=== PATIENT | female | born 1930 | race Caucasian/White ===

== ENCOUNTER 2018-04-16 13:41 | Emergency (ER) | payer MEDICARE ==
--- OUTSIDE RECORDS SUMMARY | 2018-04-16 14:08 | XMS REPORT | Continuity of Care Document ---
:1930 External Reference #:[id number] Author Name Sergo Garcia M.D. Address [address] [place] [address] Care Team Providers Name Role Phone Itzel Dang M.D. Primary Care Physician Unavailable Payers Type Date Identification Numbers Payment Provider Subscriber Policy Number: [id number] [facility] Lisa Oreilly PayID: [id number] [id number] [place] [id number] Advance Directives Description No Information Available Problems Date Description Provider Status Onset: Arthritis Active Onset: Meniere's disease Active Onset: 09/13/2016 Nuclear senile cataract Sergo Garcia M.D. Active Onset: 09/13/2016 Ocular hypertension Sergo Garcia M.D. Active Onset: 09/13/2016 Vitreous degeneration Sergo Garcia M.D. Active Onset: 09/13/2016 Hypermetropia Sergo Garcia M.D. Active Onset: 09/13/2016 Presbyopia Sergo Garcia M.D. Active Onset: 09/19/2017 Corneal opacity Sergo Garcia M.D. 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 Family History Date Family Member(s) Problem(s) Comments Father No Current Problems Mother No Current Problems Social History Type Date Description Comments Sex Unknown Marital Status Single Occupation [employer] Work Status Retired ETOH Use Denies alcohol use Tobacco Use Start: Unknown Patient has never smoked Recreational Drug Use Denies Drug Use Smoking Status Reviewed: 01/17/19 Patient has never smoked Allergies, Adverse Reactions, Alerts Date Description Reaction Status Severity Comments 09/11/2016 Penicillin Active Medications Medication Date Status Form Strength Qnty SIG Indications Ordering Provider Meclizine HCL Active Tablets 25mg Unknown 00 Multi Vitamin Active Tablets Unknown Daily 00 Vitamin D Active Tablets 1000Unit 4 every Unknown 00 day Calcium 600 Active Tablets 600mg Unknown 00 Magnesium Active Capsules 300mg Unknown 00 Potassium Active Tablets 75mg Unknown 00 Fish Oil Active Capsules 1000mg 1 by Unknown 00 mouth every day Immunizations Description No Information Available Vital Signs Description No Information Available Results Description No Information Available Procedures Date Code Description Status 09/19/2017 62099 Est Patient Comprehensive Exam Completed 09/13/2016 52944 Determination Of Refractive State Completed 09/13/2016 72151 New Patient Comprehensive Exam Completed 06/29/2008 66952 Fundus Photography With Interpretation And Report Completed 06/29/2008 28341 Est Patient Intermediate Exam Completed 06/29/2008 75931 Pachymetry Completed 12/30/2007 35441 Determination Of Refractive State Completed 12/30/2007 03357 Est Patient Comprehensive Exam Completed 01/11/2004 08578 Determination Of Refractive State Completed 01/11/2004 13348 Est Patient Comprehensive Exam Completed Encounters Description No Information Available Plan of Treatment 04/03/2018 - Sergo Garcia M.D.H25.13 Age-related nuclear cataract, bilateralComments:Smoking can increase the risk of developing or worsening any eye related disease, as well as affect your overall health. If you are a smoker , we strongly recommend that you quit.If you are not a smoker, we strongly recommend that you do not start. You have been diagnosed with cataracts. If you are happy with your vision as it is now, then we will see you at your next scheduled appointment. If you feel like your vision is getting worse before your scheduled appointment, please call Hanna Baez at .Follow up:1 Year Follow Up DFE You can expect to have your eyes dilated at your next visit. If Dr. Garcia orders any additional testing, it may require extra time. We recommend that you bring sunglasses, as dilation drops often make you light sensitive until they wear off. We always recommend you bring someone to drive you home if you are uncomfortable driving with your eyes dilated. If you have any questions before your next visit, feel free to call our office at .h43.813 Vitreous degeneration, bilateralComments: You have a Posterior Vitreous Detachment. If you have any changes in your floaters or flashing lights, please contact this office.D48.5 Neoplasm of uncertain behavior of skinComments:IF THE SPOT ON THE LEFT LOWER EYELID RETURNS THEN CALL THE OFFICE.
--- OUTSIDE RECORDS SUMMARY | 2018-04-16 14:09 | XMS REPORT ---
:1930 External Reference #:[id number] Author Organization [facility] Address [address] [place] [address] Phone [phone] Care Team Providers Name Role Phone Itzel Dang Care Team Information Radiology Scheduler Unavailable Itzel Dang Primary Care Physician Unavailable Payers Type Date Identification Numbers Payment Provider Subscriber Commercial Effective: Policy Number: Medicare Blue Ppo Lisa Oreilly 2006 [id number] Group Number: [id number] [address] [address] Group Name: [place] [address] PayID: [id number] Problems Date Description Provider Status Onset: 06/18/2011 Disorder of shoulder Darlene Cruz M.D. Active Onset: 06/18/2011 Essential tremor Darlene Cruz M.D. Active Onset: 03/26/2017 Meniere's disease, bilateral Itzel Dang M.D. Active Onset: 05/21/2014 Osteoporosis Itzel Dang M.D. Active Onset: 05/21/2014 Post-herpetic polyneuropathy Itzel Dang M.D. 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 Father 64 dt ID. Mother 87 dt CVA Number of Children None Number of Siblings 7 siblings: 6 girls, 2 boys First Brother age 90 in 2013. First Sister [place], early dementia. LIves in [facility]. Second Sister 93. Nataly. ?Caught something while visiting her daughter in [place]. Social History Type Date Description Comments Marital Status Patient is single. Partner of 51 years in 2005 from lymphoma. Living Situation Patient lives alone. 91 yr old sister, Nataly, lives in [facility]. Other sister, Serenity Pagan, has Alzheimers and lives in [facility]. Occupation Retired Bookkeeping at [employer] Cigarette Use Never Smoked Cigarettes ETOH Use Denies alcohol use Smoking Patient has never smoked Daily Caffeine Consumes on average 1 cup of coffee per day Exercise Type/Frequency Exercises sporadically, has a Current home stretching program, carlos mcmanuswes the lawn now (2016), does a lot of yardwork. [email or web address] still does shovelling, housework. Allergies, Adverse Reactions, Alerts Date Description Reaction Status Severity Comments 10/20/1998 Penicillin active Hives Medications Medication Date Status Form Strength Qnty SIG Indications Ordering Provider New Chapter 03/20 Active Itzel Adler Calcium /2018 Breann Dang Meclizine HCL 02/20 Active Tablets 25mg 30tab 1/2 pill by Itzel Adler s mouth up to [place], three times a M.D. day as needed. MSM 09/01 Active Itzel Adler /2013 Breann Dang One A Day 09/01 Active Itzel Adler Multivitamin /2013 Breann Dang Potassium/Magn 09/01 Active Itzel Adler esium /2013 Breann Dang Fish Oil Active Capsules 1000mg 2 by mouth bid Unknown /0000 New Chapter 11/05 Hx Itzel Adler Vitamin D /2017 Marisa Dang.DGael 03/20 Physical 07/03 Hx evaluate and M81.0 Itzel Adler Therapy /2017 treat fall [place], - prevention and M.DGael 10/29 osteoporosis /2017 Physical 07/11 Hx evaluate and M25.551 Itzel Adler Therapy /2016 treat right [place], - hip pain. M.D. 03/26 Meclizine 02/20 Hx 25mg 30uni 1/2 tab po tid Itzel Adler /2015 ts Marisa DangDGael 02/20 Meloxicam 10/04 Hx Tablets 7.5mg 60tab 1 by mouth 729.5 Nora s twice a day Brown, [employer]IV[employer]IAN J[employer] OFFICER - 02/06 Vit D3 09/01 Hx 1000iu po Itzel L. /2013 daily [place], - M.D. 11/05 Alendronate 09/01 Hx Tablets 70mg 4tabs take 1 tablet 733.00 Itzel L. Sodium /2013 every week on [place], - an empty M.D. 11/13 stomach. Stand up for one-half hour after taking it. Betamethasone 07/23 Hx Cream 0.1% 30uni apply to 782.1 Trisha Valerate ts affected Pop, - area(s) two Afnp-C 02/06 times a day /2015 No Active 12/02 Hx Unknown Medications /2012 - 12/02 Gabapentin 02/17 Hx Capsules 100mg 35cap take 2 Sandy s capsules qd Marisa, - for 2 weeks LENDING MANAGER 05/27 then 1 po qd for 1 week Gabapentin 01/06 Hx Capsules 300mg 90cap take one Sandy s capsule by Marisa, - mouth three LENDING MANAGER 02/17 times a day /2011 Gabapentin 12/24 Hx Capsules 100mg 90cap take 1 Sandy s capsules every Marisa, - 8 hours LENDING MANAGER 01/06 Valtrex 12/17 Hx Tablets 1gm 21tab 1 po tid x 7 053.79 Trisha s days may fill Pop, - w/ generic Afnp-C 02/10 PT Referral 06/17 Hx please Darlene Sorenson /2011 evaluate and Anthony, - treat for l M.D. 08/22 upper arm /2011 muscular pain Relafen 08/07 Hx 500mg 30uni 1 po bid with 729.5 Kadi ts food Amber, - Afnp-C 09/04 Magic 06/14 Hx 500ml 30 ml Kellie Mouthwash /2005 diphenhydramin von - e liquid, 60 [place], 10/01 ml mylanta and M.D. /2005 4 g carafate sig: Swish And Spit bid Fosamax 07/27 Hx Tablets 70mg 4tabs 1 po qweek on Kellie /2005 empty stomach michael Boyle, 06/14 M.D. /2005 Meclizine 05/24 Hx 25mg 15uni 1/2 tab by Itzel Adler /2004 ts mouth three [place], - times a day M.D. 02/20 Aricept 05/24 Hx 10mg 30uni 1 po qhs Kellie /2005 ts michael Boyle, 06/14 M.D. /2005 Quinine 05/07 Hx Tabs 200mg 30tab 1 po qhs prn Tunde S. Sulfate s Marisa Mendoza M.D. 06/14 Physical 05/07 Hx Treatment And Tunde S. Therapy Evaluation Marisa Mendoza M.D. 07/06 Shoulder And /2000 Arm Pain Meclizine 02/19 Hx 12.5mg 30uni 1-2 po tid prn Kadi richard Clark, - Afnp-C 05/27 Vital Signs Date Vital Result Comment 03/20/2018 BP Systolic 120 mmHg BP Diastolic 52 mmHg Heart Rate 96 /min Body Temperature 97.6 F Respiratory Rate 17 /min Height 55.5 inches 4'7.50" Weight 90.38 lb BMI (Body Mass Index) 20.6 kg/m2 11/05/2017 BP Systolic 140 mmHg BP Diastolic 60 mmHg Heart Rate 78 /min Body Temperature 97.5 F Respiratory Rate 16 /min Height 55.5 inches 4'7.50" Weight 90.50 lb BMI (Body Mass Index) 20.7 kg/m2 08/20/2017 BP Systolic 118 mmHg BP Diastolic 60 mmHg Heart Rate 84 /min Body Temperature 97.7 F Respiratory Rate 16 /min Height 55.5 inches 4'7.50" Weight 92.12 lb BMI (Body Mass Index) 21.0 kg/m2 07/03/2017 BP Systolic 132 mmHg BP Diastolic 62 mmHg Heart Rate 72 /min Body Temperature 97.7 F Height 55.5 inches 4'7.50" Weight 92.50 lb BMI (Body Mass Index) 21.1 kg/m2 03/26/2017 BP Systolic 110 mmHg BP Diastolic 60 mmHg Heart Rate 88 /min Body Temperature 97.9 F Respiratory Rate 18 /min Height 55.5 inches 4'7.50" Weight 88.50 lb BMI (Body Mass Index) 20.2 kg/m2 07/11/2016 BP Systolic 120 mmHg BP Diastolic 70 mmHg Heart Rate 72 /min Body Temperature 98.2 F Respiratory Rate 16 /min Height 55.5 inches 4'7.50" Weight 91.44 lb BMI (Body Mass Index) 20.9 kg/m2 02/08/2016 BP Systolic 124 mmHg BP Diastolic 62 mmHg Heart Rate 78 /min Body Temperature 97.9 F Height 55.5 inches 4'7.50" Weight 89.00 lb BMI (Body Mass Index) 20.3 kg/m2 10/04/2014 BP Systolic 100 mmHg BP Diastolic 70 mmHg Heart Rate 72 /min Body Temperature 98.2 F Respiratory Rate 18 /min Height 55.5 inches 4'7.50" Weight 89.00 lb BMI (Body Mass Index) 20.3 kg/m2 05/21/2014 BP Systolic 122 mmHg BP Diastolic 82 mmHg Heart Rate 80 /min Body Temperature 97.7 F O2 % BldC Oximetry 55.5 % Height 55.5 inches 4'7.50" Weight 89.00 lb BMI (Body Mass Index) 20.3 kg/m2 11/13/2013 BP Systolic 90 mmHg BP Diastolic 60 mmHg Heart Rate 84 /min Body Temperature 97.4 F Respiratory Rate 16 /min Height 55.5 inches 4'7.50" Weight 86.00 lb BMI (Body Mass Index) 19.6 kg/m2 09/01/2013 BP Systolic 90 mmHg BP Diastolic 60 mmHg Heart Rate 90 /min Body Temperature 97.2 F Respiratory Rate 16 /min Height 55.5 inches 4'7.50" Weight 85.25 lb BMI (Body Mass Index) 19.5 kg/m2 Right Visual Acuity Distance 20/50 corrected Left Visual Acuity Distance 20/40 corrected 07/23/2013 BP Systolic 128 mmHg BP Diastolic 60 mmHg Heart Rate 74 /min Body Temperature 98.3 F Height 55.5 inches 4'7.50" Weight 88.00 lb BMI (Body Mass Index) 20.1 kg/m2 12/02/2012 BP Systolic 138 mmHg BP Diastolic 88 mmHg Heart Rate 88 /min Body Temperature 97.9 F Respiratory Rate 16 /min Height 55.5 inches 4'7.50" Weight 88.38 lb BMI (Body Mass Index) 20.2 kg/m2 05/27/2012 BP Systolic 120 mmHg BP Diastolic 70 mmHg Heart Rate 80 /min Body Temperature 98.0 F Respiratory Rate 16 /min Height 55.5 inches 4'7.50" Weight 90.00 lb BMI (Body Mass Index) 20.5 kg/m2 02/11/2012 BP Systolic 112 mmHg BP Diastolic 72 mmHg Heart Rate 88 /min Body Temperature 97.6 F Height 56 inches 4'8" Weight 92.00 lb BMI (Body Mass Index) 20.6 kg/m2 12/18/2011 BP Systolic 130 mmHg BP Diastolic 70 mmHg Heart Rate 80 /min Body Temperature 96.9 F Height 56 inches 4'8" Weight 91.00 lb BMI (Body Mass Index) 20.4 kg/m2 08/23/2011 BP Systolic 94 mmHg BP Diastolic 56 mmHg Heart Rate 78 /min Body Temperature 98.6 F Height 56 inches 4'8" Weight 88.50 lb BMI (Body Mass Index) 19.8 kg/m2 06/18/2011 BP Systolic 110 mmHg BP Diastolic 68 mmHg Heart Rate 96 /min Body Temperature 98.4 F Height 56 inches 4'8" Weight 87.50 lb BMI (Body Mass Index) 19.6 kg/m2 09/04/2010 BP Systolic 110 mmHg BP Diastolic 62 mmHg Heart Rate 74 /min Body Temperature 96.8 F Height 56 inches 4'8" Weight 92.00 lb BMI (Body Mass Index) 20.6 kg/m2 08/07/2010 BP Systolic 100 mmHg BP Diastolic 60 mmHg Heart Rate 68 /min Respiratory Rate 15 /min Height 56 inches 4'8" Weight 93.00 lb BMI (Body Mass Index) 20.8 kg/m2 04/18/2009 BP Systolic 124 mmHg BP Diastolic 70 mmHg Heart Rate 102 /min Body Temperature 98.8 F Height 56 inches 4'8" Weight 93.00 lb BMI (Body Mass Index) 20.8 kg/m2 10/17/2006 BP Systolic 150 mmHg BP Diastolic 90 mmHg Heart Rate 78 /min Height 56.5 inches 4'8.50" Weight 98.00 lb BMI (Body Mass Index) 21.6 kg/m2 08/02/2006 BP Systolic 112 mmHg BP Diastolic 70 mmHg Heart Rate 68 /min Body Temperature 98.3 F Height 56.5 inches 4'8.50" Weight 99.00 lb BMI (Body Mass Index) 21.8 kg/m2 10/01/2005 BP Systolic 104 mmHg BP Diastolic 70 mmHg Heart Rate 68 /min Height 56.5 inches 4'8.50" Weight 122.00 lb BMI (Body Mass Index) 26.9 kg/m2 06/14/2005 BP Systolic 126 mmHg BP Diastolic 80 mmHg Heart Rate 78 /min Body Temperature 98.9 F Height 56.5 inches 4'8.50" Weight 124.00 lb BMI (Body Mass Index) 27.3 kg/m2 10/05/2004 BP Systolic 122 mmHg BP Diastolic 62 mmHg Heart Rate 80 /min Body Temperature 99.5 F Height 56.5 inches 4'8.50" Weight 125.00 lb BMI (Body Mass Index) 27.5 kg/m2 05/24/2004 BP Systolic 118 mmHg BP Diastolic 60 mmHg Heart Rate 128 /min Height 56.5 inches 4'8.50" Weight 129.00 lb BMI (Body Mass Index) 28.4 kg/m2 10/30/2002 BP Systolic 108 mmHg BP Diastolic 70 mmHg Heart Rate 88 /min Height 58.5 inches 4'10.50" Weight 126.00 lb BMI (Body Mass Index) 25.9 kg/m2 08/07/2001 BP Systolic 120 mmHg BP Diastolic 78 mmHg Heart Rate 80 /min Height 58.5 inches 4'10.50" Weight 129.00 lb BMI (Body Mass Index) 27.0 kg/m2 05/07/2000 BP Systolic 130 mmHg BP Diastolic 80 mmHg Heart Rate 90 /min Body Temperature 97.5 F Height 56.75 inches 4'8.75" Weight 126.00 lb BMI (Body Mass Index) 28.2 kg/m2 10/20/1998 BP Systolic 140 mmHg LA SM Cuff BP Diastolic 72 mmHg LA SM Cuff Heart Rate 72 /min Reg Body Temperature 97.8 F Height 56.75 inches 4'8.75" Weight 121.00 lb 11/17/1996 BP Systolic 110 mmHg BP Diastolic 72 mmHg Weight 126.00 lb Results Test Date Test Result H/L Range Note Lipid Profile 03/26/2017 Cholesterol 230 mg/dL High 120-200 Triglycerides 76 mg/dL 30-200 HDL Cholesterol 89 mg/dL High 30-85 1 LDL (Calculated) 126 CALC 0-129 VLDL Cholesterol 15 mg/dL 0-50 HDL Risk Factor 2.6 CALC 0.0-4.4 Laboratory test finding 03/26/2017 TSH 1.95 mIU/L 0.50-6.00 Magnesium, Serum 2.0 mEq/L 1.2-2.1 Comprehensive Metabolic Prof 03/26/2017 Sodium 147 mEq/L 134-149 Potassium 4.5 mEq/L 3.6-5.5 Chloride 111 mEq/L 94-112 Carbon Dioxide 24 mEq/L 21-32 Glucose 81 mg/dL 70-105 BUN 19 mg/dL 6-26 Creatinine 0.7 mg/dL 0.6-1.4 BUN/Creat Ratio 27.1 CALC 8.0-36.0 Calcium 10.2 mg/dL 8.6-10.2 Total Protein 7.4 g/dL 6.4-8.3 Albumin 4.3 g/dL 3.8-5.5 Globulin 3.1 g/dL 2.0-4.8 A/G Ratio 1.4 CALC 0.6-2.3 Alk. Phosphatase 77 U/L 30-110 Alt (SGPT) 36 U/L High 7-35 Ast (Sgot) 42 U/L High 5-34 Total Bilirubin 0.6 mg/dL 0.2-1.3 GFR Non- >60 ml/min/1.73m^ >=60 GFR >60 ml/min/1.73m^ >=60 CBC Electronic (a) 03/26/2017 WBC 5.7 3.6-9.6 RBC 4.40 3.90-5.70 Hemoglobin (Fma/CMC/CTX) 13.7 g/dL 12.1 - 17.2 Hematocrit (Fma/CMC/CTX) 41.7 % 36.1 - 50.3 Platelets 202 10^3/ul 150-400 Lymph% 29.8 % 17.0-48.0 Mixed% 5.7 Neutrophils % 64.5 Mean Corpuscular Vol 95 82.2-97.4 Mean Corpuscular Hemoglobin 31.2 27.6-33.3 Mean Corpuscular Hemo Concen 32.9 32.0-36.0 RDW 14.5 High 11.6-13.7 Mean Platelet Volume 7.7 5.5-11.0 Laboratory test finding 02/08/2016 TSH 1.70 mIU/L 0.50-6.00 Free T4 1.14 ng/dL 0.75-1.54 CBC Electronic (a) 02/08/2016 WBC 5.9 3.6-9.6 RBC 4.18 3.90-5.70 Hemoglobin (Fma/CMC/CTX) 13.0 g/dL 12.1 - 17.2 Hematocrit (Fma/CMC/CTX) 40.0 % 36.1 - 50.3 Platelets 215 10^3/ul 150-400 Lymph% 27.1 % 17.0-48.0 Mixed% 5.5 Neutrophils % 67.4 Mean Corpuscular Vol 96 82.2-97.4 Mean Corpuscular Hemoglobin 31.2 27.6-33.3 Mean Corpuscular Hemo Concen 32.6 32.0-36.0 RDW 14.0 High 11.6-13.7 Mean Platelet Volume 7.2 5.5-11.0 Lipid Profile 02/08/2016 Cholesterol 254 mg/dL High 120-200 Triglycerides 62 mg/dL 30-200 HDL Cholesterol 101 mg/dL High 30-85 2 LDL (Calculated) 141 CALC High 0-129 VLDL Cholesterol 12 mg/dL 0-50 HDL Risk Factor 2.5 CALC 0.0-4.4 Comprehensive Metabolic Prof 02/08/2016 Sodium 142 mEq/L 134-149 Potassium 4.6 mEq/L 3.6-5.5 Chloride 100 mEq/L 94-112 Carbon Dioxide 26 mEq/L 21-32 Glucose 104 mg/dL 70-105 BUN 13 mg/dL 6-26 Creatinine 0.6 mg/dL 0.6-1.4 BUN/Creat Ratio 21.7 CALC 8.0-36.0 Calcium 10.0 mg/dL 8.6-10.2 Total Protein 7.4 g/dL 6.4-8.3 Albumin 4.2 g/dL 3.8-5.5 Globulin 3.2 g/dL 2.0-4.8 A/G Ratio 1.3 CALC 0.6-2.3 Alk. Phosphatase 78 U/L 30-110 Alt (SGPT) 26 U/L 7-35 Ast (Sgot) 39 U/L High 5-34 3 Total Bilirubin 0.5 mg/dL 0.2-1.3 GFR Non- >60 ml/min/1.73m^ >=60 GFR >60 ml/min/1.73m^ >=60 Laboratory test finding 02/08/2016 Vitamin B-12 1146 pg/mL High 230-1050 4 Folate Level >20.00 ng/mL High 3.00-16.00 CBC Electronic (a) 05/21/2014 WBC 5.7 3.6-9.6 RBC 4.22 3.90-5.70 Hemoglobin (Fma/CMC/CTX) 13.2 g/dL 12.1 - 17.2 Hematocrit (Fma/CMC/CTX) 39.6 % 36.1 - 50.3 Platelets 214 10^3/ul 150-400 Lymph% 29.0 % 17.0-48.0 Mixed% 6.7 Neutrophils % 64.3 Mean Corpuscular Vol 94 82.2-97.4 Mean Corpuscular Hemoglobin 31.4 27.6-33.3 Mean Corpuscular Hemo Concen 33.5 32.0-36.0 RDW 14.5 High 11.6-13.7 Mean Platelet Volume 7.0 5.5-11.0 Laboratory test finding 05/21/2014 Vitamin D25 79 30-100 5 Laboratory test finding 05/21/2014 TSH 2.75 mIU/L 0.50-6.00 Comprehensive Metabolic Prof 05/21/2014 Sodium 143 mEq/L 134-149 Potassium 4.5 mEq/L 3.6-5.5 Chloride 105 mEq/L 94-112 Carbon Dioxide 25 mEq/L 21-32 Glucose 105 mg/dL 70-105 BUN 17 mg/dL 6-26 Creatinine 0.6 mg/dL 0.6-1.4 BUN/Creat Ratio 28.3 CALC 8.0-36.0 Calcium 9.7 mg/dL 8.6-10.2 Total Protein 7.5 g/dL 6.4-8.3 Albumin 4.4 g/dL 3.8-5.5 Globulin 3.1 g/dL 2.0-4.8 A/G Ratio 1.4 CALC 0.6-2.3 Alk. Phosphatase 70 U/L 30-110 Alt (SGPT) 28 U/L 7-35 Ast (Sgot) 39 U/L High 5-34 Total Bilirubin 0.4 mg/dL 0.2-1.3 Ua - Non Micro ([facility]) 09/01/2013 Appearance CLEAR Color YELLOW Glucose NEGATIVE Bilirubin NEGATIVE Ketones NEGATIVE SP Grav >=1.030 Blood NEGATIVE PH 5.5 Protein NEGATIVE Urobil 0.2 Nitrite NEGATIVE Leukocytes (Fma/CMC/Centrex) NEGATIVE Complete Blood Count 09/01/2013 WBC 5.0 x10^3/UL 3.6-9.6 RBC 4.16 x10^6/UL 3.90-5.70 HGB 13.6 g/dL 12.1-17.2 HCT 40 % 36-50 MCV 95.0 fL 82.2-97.4 MCH 32.8 pg 27.6-33.3 MCHC 34.5 g/dL 33.0-35.5 RDW 12.2 % 11.6-13.7 PLT 164 x10^3/UL 150-400 MPV 8.5 fL 7.4-10.4 Gran # 2.7 x10^3/UL 1.5-7.2 Lymph# 1.8 x10^3/UL 0.7-4.9 [place]# 0.5 x10^3/UL 0.1-0.9 Gran % 51.5 % 42.2-75.2 Lymph % 36.6 % 20.5-51.1 [place]% 11.9 % High 1.7-9.3 Comprehensive Metabolic Prof 09/01/2013 Sodium 136 mEq/L 134-149 Potassium 4.5 mEq/L 3.6-5.5 Chloride 104 mEq/L 94-112 Carbon Dioxide 28 mEq/L 21-32 Glucose 94 mg/dL 70-105 BUN 14 mg/dL 6-26 Creatinine 0.8 mg/dL 0.6-1.4 BUN/Creat Ratio 17.5 CALC 8.0-36.0 Calcium 10.1 mg/dL 8.6-10.2 Total Protein 7.0 g/dL 6.3-8.1 Albumin 4.5 g/dL 3.8-5.5 Globulin 2.5 g/dL 2.0-4.8 A/G Ratio 1.8 CALC 0.6-2.3 Alk. Phosphatase 80 U/L 30-110 Alt (SGPT) 32 U/L 7-35 Ast (Sgot) 34 U/L 5-34 Total Bilirubin 0.5 mg/dL 0.2-1.3 Laboratory test finding 09/01/2013 Vitamin D25 114 High 30-100 6 TSH 3.68 mIU/L 0.50-6.00 Lipid Profile 09/01/2013 Cholesterol 222 mg/dL High 120-200 Triglycerides 67 mg/dL 30-200 HDL Cholesterol 76 mg/dL 30-85 LDL (Calculated) 133 CALC High 0-129 VLDL Cholesterol 13 mg/dL 0-50 HDL Risk Factor 2.9 CALC 0.0-4.4 CBC Electronic ([facility]) 05/27/2012 WBC 4.9 3.6-9.6 RBC 4.32 3.90-5.70 Hemoglobin (Fma/CMC/CTX) 13.6 g/dL 12.1 - 17.2 Hematocrit (Fma/CMC/CTX) 40.8 % 36.1 - 50.3 Platelets 203 10^3/ul 150-400 Lymph% 23.4 20.5-51.1 Mixed% 8.8 Neutrophils % 67.8 Mean Corpuscular Vol 94 82.2-97.4 Mean Corpuscular Hemoglobin 31.5 27.6-33.3 Mean Corpuscular Hemo Concen 33.4 32.0-36.0 RDW 11.7 11.6-13.7 Mean Platelet Volume 7.6 6.5-11.0 Laboratory test finding 05/27/2012 TSH 2.85 mIU/L 0.50-6.00 Comprehensive Metabolic Prof 05/27/2012 Albumin 4.8 g/dL 3.8-5.5 Alk. Phos. 82 U/L 30-110 Alt (SGPT) 30 U/L 7-35 Ast (Sgot) 38 U/L High 5-34 7 BUN 16 mg/dL 6-26 Calcium 10.0 mg/dL 8.6-10.2 Chloride 101 mEq/L 94-112 Creatinine 0.8 mg/dL 0.6-1.4 Carbon Dioxide 24 mEq/L 21-32 Glucose 113 mg/dL High 70-105 8 Sodium 140 mEq/L 134-149 Total Bilirubin 0.5 mg/dL 0.2-1.3 Total Protein 7.4 g/dL 6.3-8.1 Potassium 4.2 mEq/L 3.6-5.5 Globulin 2.7 g/dL 2.0-4.8 A/G Ratio 1.8 Calc 0.6-2.3 BUN/Creat Ratio 21.1 Calc 8.0-36.0 Ua - Non Micro (a) 05/27/2012 Appearance CLEAR Color YELLOW Glucose, Urine (a/CMC/CTX) - Bilirubin - Ketones - SP Grav 1.020 Blood - PH 6.0 Protein - Urobil 0.2 Nitrite - Leukocytes ([facility]) - Ua - Non Micro ([facility]) 04/18/2009 Appearance CLEAR Color YELLOW Glucose NEG Bilirubin NEG Ketones TRACE SP Grav 1.025 Blood NEG PH 5.0 Protein NEG Urobil 0.2 Nitrite NEG Leukocytes (a/[facility]) NEG CBC ([facility]) 04/18/2009 WBC 6.0 3.6-9.6 RBC 4.35 3.90-5.70 Hemoglobin (a/CMC/CTX) 13.3 g/dL 12.1 - 17.2 Hematocrit (a/[facility]/CTX) 41.5 % 36.1 - 50.3 Mean Corpuscular Vol 95.4 82.2-97.4 Mean Corpuscular Hemaglobin 30.6 27.6-33.3 Mean Corpuscular Hemo Concen 32.0 Low 33.0-36.0 Platelets 166 10^3/ul 150-400 Lymph% 18.5 Low 20.5-51.1 Mixed% 8.3 Neutrophils % 73.2 RDW 12.9 11.6-13.7 Mean Platelet Volume 12.8 High 7.4-10.4 Laboratory test finding 04/18/2009 TSH 3.96 mIU/L 0.50-6.00 Comprehensive Metabolic Prof 04/18/2009 Albumin 4.4 g/dL 3.8-5.5 Alk. Phos. 63 U/L 30-110 Alt (SGPT) 28 U/L 7-35 Ast (Sgot) 36 U/L High 5-34 9 BUN 14 mg/dL 6-26 Calcium 10.1 mg/dL 8.6-10.2 Chloride 106 mEq/L 94-112 Creatinine 0.7 mg/dL 0.6-1.4 Carbon Dioxide 28 mEq/L 21-32 Glucose 100 mg/dL 70-105 Sodium 142 mEq/L 134-149 Total Bilirubin 0.3 mg/dL 0.2-1.3 Total Protein 7.2 g/dL 6.3-8.1 Potassium 5.3 mEq/L 3.6-5.5 Globulin 2.8 g/dL 2.0-4.8 A/G Ratio 1.6 Calc 0.6-2.2 BUN/Creat Ratio 20.3 Calc 8.0-36.0 Lipid Profile 04/18/2009 Cholesterol 225 mg/dL High 120-200 HDL 62 mg/dL 30-85 Triglycerides 152 mg/dL 30-200 HDL Risk Factor 3.6 CALC Low 4.2-7.0 LDL (Calculated) 132 CALC High 0-129 VLDL (Calculated) 30 mg/dL 0-50 Comprehensive Metabolic Prof 10/17/2006 Albumin 4.1 g/dL 3.8-5.5 Alk. Phos. 83 U/L 30-110 Alt (SGPT) 25 U/L 7-35 Ast (Sgot) 34 U/L 5-34 BUN 15 mg/dL 6-26 Calcium 9.7 mg/dL 8.6-10.2 Chloride 100 mEq/L 94-112 Creatinine 0.8 mg/dL 0.6-1.4 Carbon Dioxide 28 mEq/L 21-32 Glucose 94 mg/dL 70-105 Sodium 139 mEq/L 134-149 Total Bilirubin 0.3 mg/dL 0.2-1.3 Total Protein 6.9 g/dL 6.3-8.1 Potassium 4.8 mEq/L 3.6-5.5 Globulin 2.8 g/dL 2.0-4.8 A/G Ratio 1.5 Calc 0.6-2.2 BUN/Creat Ratio 19.0 Calc 8.0-36.0 Complete Blood Count 10/17/2006 WBC 6.5 x10\\S\\3/uL 3.6-9.6 Gran# 4.2 x10\\S\\3/uL 1.5-7.2 Gran% 64.9 % 42.2-75.2 HCT 41 % 36-50 HGB 14.3 g/dL 12.1-17.2 Lymph# 1.6 x10\\S\\3/uL 0.7-4.9 Lymph% 25.1 % 20.5-51.1 MCH 32.2 pg 27.6-33.3 MCV 92.6 fL 82.2-97.4 MCHC 34.8 g/dL 33.0-35.5 Mo# 0.6 x10\\S\\3/uL 0.1-0.9 Mo% 10.0 % High 1.7-9.3 MPV 9.8 fL 7.4-10.4 PLT 181 x10\\S\\3/uL 150-400 RBC 4.44 x10\\S\\6/uL 3.90-5.70 RDW 11.9 % 11.6-13.7 Laboratory test finding 10/17/2006 TSH 2.68 mIU/L 0.50-6.00 B12 518 pg/mL 230-1050 Folate >22.00 ng/mL High 3.00-16.00 Ua - Non Micro ([facility]) 10/17/2006 Appearance CLEAR Color YELLOW Glucose, Urine (Fma/CMC/CTX) NEG Bilirubin NEG Ketones NEG SP Grav 1.020 Blood NEG PH 5.0 Protein NEG Urobil 0.2 Nitrite NEG Leukocytes (a/[facility]) NEG Ua - Micro (a) 10/01/2005 Appearance CLEAR Color LT.YELLOW Glucose NEG Bilirubin NEG Ketones NEG SP Grav 1.025 Blood NEG PH 5.0 Protein, Random Urine NEG Urobil 0.2 Nitrite NEG Leukocytes (a/[facility]) 1+ Hyaline - /Lpf Granular - /Lpf WBC, Fluid 10-12 RBC, Fluid 1-3 Mucus SM AMT /Lpf Epith FEW /Lpf Bacteria TR /Hpf Amorphous - /Lpf Crystals, Urine (Fma/CMC/CTX) - /Lpf Z#Comments - Lipid Profile (a) Female 05/24/2004 Cholesterol 217 mg/dL High 120-200 Triglyceride 136 mg/dL 30-200 HDL-Chol 41 mg/dL 30-85 LDL, Calculated ([facility]) 148 CALC High 0-129 LDL, Direct - mg/dL 0-130 VLDL 27 0-50 HDL Risk Factor ([facility]) 5.2 CALC 4.2-7.0 Laboratory test 05/24/2004 TSH ([facility]) 3.04 uIU/ml 0.5-6.0 finding Folic Acid/B12 Panel 05/24/2004 Folic Acid >22.00 NG/ML High 3.00-16.00 B12 525 pg/mL 230-1050 CBC Electronic (a) 05/24/2004 WBC 6.8 3.6-9.6 Lymphocytes 17.1 % Low 20.5 - 51.1 Monocytes 4.9 % 1.7-9.3 Granulocytes 78.0 % High 42.2 - 75.2 Lymphocytes 1.2 10^3/uL 0.7 - 4.9 Monocytes 0.3 10^3/uL 0.1 - 0.9 Granulocytes 5.3 10^3/uL 1.5 - 7.2 RBC 4.71 3.90-5.70 Hemoglobin (Fma/CMC/CTX) 15.1 g/dL 12.1 - 17.2 Hematocrit (a/CMC/CTX) 45.0 % 36.1 - 50.3 Mean Corpuscular Vol 95.6 82.2-97.4 Mean Corpuscular Hemaglobin 32.0 27.6-33.3 Mean Corpuscular Hemo Concen 33.5 33.0-35.5 RDW 12.1 11.6-13.7 Platelets 205. 10^3/ul 150-400 Mean Platelet Volume 7.9 7.4-10.4 Ua - Non Micro ([facility]) 05/24/2004 Appearance CLEAR Color LIGHT YELLOW Glucose NEGATIVE Bilirubin NEGATIVE Ketones NEGATIVE SP Grav >=1.030 Blood NEGATIVE PH 5.0 Protein NEGATIVE Urobil 0.2 Nitrite NEGATIVE Leukocytes NEGATIVE Laboratory test finding 05/24/2004 RPR NON-REACTIVE Non-Reactive Comp Metabolic ([facility]) 05/24/2004 Glucose, Serum 111 mg/dL 70-118 Female (a/CMC/CTX) BUN (a/[facility]) 15 mg/dL 6-26 Creatinine, Serum 0.8 mg/dL 0.6-1.4 BUN/Creatinin Ratio 19.6 8.0-36 Sodium 141 134-149 Potassium 4.2 3.6-5.5 Chloride 99 mEq/L 94-112 Co2 25 21-32 Calcium (a/CMC/[facility]) 9.9 mg/dL 8.6-10.2 Total Protein 7.4 g/dL 6.3-8.1 Albumin (a/CMCC/[facility]) 4.3 3.8-5.5 Globulin 3.1 2.0-4.8 A/G Ratio (A/G Ratio) 1.4 0.6-2.2 Alkaline Phosphatase (F/C/CTX) 69 U/L 30-110 Alt (SGPT) 24 10-40 Ast (Sgot) ([facility]) 24 U/mL 5-34 Bilirubin, Total 0.3 mg/dL 0.2-1.3 Comp Metabolic ([facility]) 08/15/2001 Albumin 4.4 3.8-5.5 Alkaline Phosphatase 64 U/L 36-117 Bilirubin, Total 0.6 mg/dL 0.2-1.3 BUN 13 7-26 Calcium 9.5 mg/dL 8.6-10.0 Creatinine 0.7 mg/dL 0.6-1.4 Glucose 96 mg/dL 70 - 118 Ast Sgot 26 U/L 5-40 Alt (SGPT) 22 10-40 Total Protein 7.1 g/dL 6.4-8.3 Sodium 149 134-149 Potassium 5.1 3.6-5.5 Chloride 103 mEq/L 94-112 Co2 25 21-32 Globulin 2.7 2.0-4.8 Albumin / Globulin Ratio 1.6 0.6-2.2 BUN/Creatinin Ratio 18.6 8.0-36 Lipid Profile ([facility]) 08/15/2001 Cholesterol 197 mg/dL 140-200 Triglyceride 130 mg/dL 30-150 VLDL 26 0-50 LDL-Calculated 125 0-160 HDL-Chol 46 35-85 CBC With Diff ([facility]) 08/15/2001 WBC 6.7 3.6-9.6 Lymphocytes 28.6 % 20.5 - 51.1 Monocytes 6.3 % 1.7-9.3 Granulocytes 65.1 % 42.2 - 75.2 Lymphocytes 1.9 10^3/uL 0.7 - 4.9 Monocytes 0.4 10^3/uL 0.1 - 0.9 Granulocytes 4.4 10^3/uL 1.5 - 7.2 RBC 4.43 3.90-5.70 Hemoglobin 14.1 g/dL 12.1 - 17.2 Hematocrit 41.1 % 36.1 - 50.3 Mean Corpuscular Vol 92.6 82.2-97.4 Mean Corpuscular Hemaglobin 31.8 27.6-33.3 Mean Corpuscular Hemo Concen 34.3 33.0-34.8 RDW 12.0 11.6-13.7 Platelets 193 10^3/ul 150-400 Mean Platelet Volume 8.4 7.4-10.4 Ua - Micro ([facility]) 08/12/2001 Appearance CLEAR YELLOW Glucose NEGATIVE Bilirubin NEGATIVE Ketones TRACE Specific Kinney 1.025 Blood NEGATIVE PH 5.5 Protein NEGATIVE Urobilinogen 0.2 Nitrite NEGATIVE Leukocytes TRACE Casts - Granular - WBC 3-5 RBC 0-1 Mucous Threads SMALL AMOUNT Epith MODERATE Bacteria TRACE Amorphous Precipitates - Crystals - Comments - Ua - Micro ([facility]) 05/07/2000 Appearance HAZY/LT YELLOW Glucose NEG Bilirubin NEG Ketones NEG SP Grav >1.030 Blood NEG PH 5.0 Protein NEG Urobil 0.2 Nitrite NEG Leukocytes NEG Hyaline - /Lpf Granular - /Lpf WBC'S 20-30 RBC'S 0-1 Mucus - /Lpf Epith MOD Bacteria 1+ Amorphous - /Lpf Crystals - /Lpf Comments - Comp Metabolic ([facility]) 05/07/2000 Albumin 4.6 3.8-5.5 Alkaline Phosphatase 80 U/L 39-130 Bilirubin, Total 0.4 mg/dL 0.2-1.3 BUN 15 7-26 Calcium 8.9 mg/dL 7.4-9.2 Creatinine 0.8 mg/dL 0.6-1.4 Glucose 102 mg/dL 70 - 118 Ast Sgot 32 U/L 9-44 Alt (SGPT) 38 10-40 Total Protein 7.5 g/dL 6.4-8.3 Sodium 145 134-149 Potassium 4.5 3.6-5.5 Chloride 108 mEq/L 94-112 Co2 27 21-32 Globulin 2.9 2.0-4.8 Albumin / Globulin Ratio 1.6 0.6-2.2 BUN/Creatinin Ratio 18.8 8.0-36 Lipid Profile ([facility]) 05/07/2000 Cholesterol 225 mg/dL High 140-200 Triglyceride 143 mg/dL 30-150 VLDL 29 0-50 LDL-Calculated 147 0-160 HDL-Chol 49 35-85 Laboratory test finding 05/07/2000 TSH 2.58 0.4-4.2 CBC With Diff ([facility]) 05/07/2000 WBC 5.9 3.6-9.6 Lymphocytes 20.6 % 20.5 - 51.1 Monocytes 6.1 % 1.7 - 9.3 Granulocytes 73.3 % 42.2 - 75.2 Lymphocytes 1.2 10^3/uL 0.7 - 4.9 Monocytes 0.4 10^3/uL 0.1 - 0.9 Granulocytes 4.3 10^3/uL 1.5 - 7.2 RBC 4.72 3.90-5.70 Hemoglobin 14.9 g/dL 12.1 - 17.2 Hematocrit 44.4 % 36.1 - 50.3 Mean Corpuscular Vol 94.1 82.2-97.4 Mean Corpuscular Hemaglobin 31.5 27.6-33.3 Mean Corpuscular Hemo Concen 33.5 33.0-34.8 RDW 12.1 11.6-13.7 Platelets 193 10^3/ul 150-400 Mean Platelet Volume 9.7 7.4-10.4 Ua - Micro ([facility]) 10/25/1998 Appearance YEL CLEAR SP Grav 1.010 Esterase SMALL Nitrite - pH 5.0 Protein - Glucose - Ketones - Bilirubin - Blood - Hyaline - /Lpf Granular - /Lpf WBC'S 10-12 RBC'S 0-1 Mucus - /Lpf Epith FEW Bacteria 1+ Amorphous - /Lpf Crystals - /Lpf 1 consistent w/ previous results 2 RESULTS VERIFIED BY REPEAT ANALYSIS 3 consistent w/ previous results 4 RESULTS VERIFIED BY REPEAT ANALYSIS 5 FASTING 6 RESULTS VERIFIED BY REPEAT ANALYSIS 7 result david'd 8 result david'd 9 RESULT DAVID'D Procedures Date CPT Code Description Status Comment 05/20/2017 78319 Dxa Bone Density Study One Or Completed More Sites Axial Skeleton 09/11/2013 51877 Dxa Bone Density Vertebarl FX Completed Assessment 09/11/2013 73708 Dxa Bone Density Study One Or Completed More Sites Axial Skeleton 09/01/2013 04609 Vision Test- screening test of Completed visual acuity, quantitative, bila 09/01/2013 89942 Electrocardiogram Complete Completed 12/02/2012 30761 Electrocardiogram Complete Completed 02/21/2012 Mammogram Completed 04/27/2011 Mammogram Completed 04/18/2009 15588 Electrocardiogram Complete Completed 11/06/2006 Mammogram Completed 06/16/[address] Dolly howe study - no f/u required 08/07/2001 96053 Electrocardiogram Complete Completed 05/07/2000 41722 Electrocardiogram Complete Completed 10/20/1998 42943 Electrocardiogram Complete Completed Encounters Type Date Location Provider CPT E/M Dx Office Visit 11/05/2017 11:20a Main Office Itzel Dang M.D. 93924 E55.9 M81.0 G25.0 B02.23 Office Visit 08/20/2017 11:20a Main Office Itzel Dang M.D. 39491 K62.5 Office Visit 07/03/2017 10:40a Main Office Itzel Dang M.D. 18499 M81.0 Office Visit 03/26/2017 10:00a Main Office Itzel Dang M.D. 17122 Z00.01 G25.0 M81.0 M15.0 H81.03 R25.2 E78.4 Office Visit 07/11/2016 11:20a Main Office Itzel Dang M.D. 10469 B02.23 M25.551 K11.7 Office Visit 02/08/2016 1:00p Main Office Itzel Dang M.D. 58759 Z00.00 G25.0 M81.0 R68.89 G47.62 E78.4 M25.551 Office Visit 10/04/2014 1:00p Main Office Nora WoodyWILLIAM 95981 729.5 Office Visit 05/21/2014 11:00a Main Office Itzel Dang M.D. 74682 333.1 715.09 053.13 733.00 278.4 719.41 Office Visit 11/13/2013 11:00a Main Office Itzel Dang M.D. 11544 733.00 Office Visit 09/01/2013 10:40a Main Office Itzel Dang M.D. 47966 V70.0 333.1 715.09 053.10 268.9 733.00 427.9 V72.0 Office Visit 07/23/2013 10:00a Main Office Trisha LordJustice-C 59816 782.1 Office Visit 12/02/2012 1:40p Main Office Itzel Dang M.D. 61021 786.59 715.09 300.4 333.1 Office Visit 05/27/2012 10:10a Main Office Itzel Dang M.D. 34858 V70.0 786.59 Office Visit 02/11/2012 10:30a Main Office [place] 16565 786.59 V76.19 053.13 Office Visit 12/18/2011 10:30a Main Office Trisha Lord Justice-C 96691 053.79 Office Visit 08/23/2011 11:40a Main Office Darlene Cruz M.D. 29415 726.19 Office Visit 06/18/2011 3:20p Main Office Darlene Cruz M.D. 71696 726.19 333.1 Office Visit 09/04/2010 12:20p Main Office Kellie Conklin M.D. 58430 729.5 Office Visit 08/07/2010 10:00a Main Office Kadi ClarkJustice-Kel[place] 08132 729.5 Office Visit 04/18/2009 12:00p Main Office Kellie Conklin M.D. 89124 783.21 333.1 V17.3 386.00 715.09 V70.0 Office Visit 10/17/2006 2:20p Main Office Kellie Conklin M.D. 05682 V70.0 783.21 780.4 729.82 Office Visit 08/02/2006 4:30p Main Office Sandy Marisa [facility] 56600 702.19 Office Visit 10/01/2005 2:20p Main Office Kellie Conklin M.D. 67016 386.00 V17.3 272.4 624.8 V70.0 791.7 Office Visit 06/14/2005 4:00p Main Office Kellie Conklin M.D. 42548 781.1 Office Visit 10/05/2004 2:00p Main Office Kellie Conklin M.D. 64965 729.5 733.90 Office Visit 05/24/2004 10:20a Main Office Kellie Conklin M.D. 18443 562.11 386.00 780.93 V17.3 V77.91 V70.0 Office Visit 10/30/2002 9:20a Main Office Tunde Mendoza M.D. 29683 386.11 Office Visit 08/07/2001 3:20p Main Office Tunde Mendoza M.D. 28123 Office Visit 05/07/2000 10:20a Main Office Tunde Mendoza M.D. 24520 Plan of Care 03/20/2018 - Itzel Dang M.D.G25.0 Essential tremorComments:stable. no meds necessary.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Comments:mild in your shoulders and left knee. Tylenol is good to take if you have too much pain.M79.605 Pain in left legComments:take tylenol as needed.H81.03 Meniere's disease, bilateralComments:take meclizine as needed. we wont do any bloodwork at this time as you are feeling well and don't really like needles. If all else goes well, will get blood work next year.Follow up:6 months.AllNew Medication:New Chapter CalciumComments:~B_~U_Medication Management~b_~u_ Patient Understands medications she's taking? Yes No Are there Barriers to Adherence? Yes No Has the patient been asked about herbal supplements and therapies, and OTC meds? Yes No
--- OUTSIDE RECORDS SUMMARY | 2018-04-16 14:09 | XMS REPORT | Continuity of Care Document ---
:1930 External Reference #:[id number] Author Name Yvonne Renee Address [address] [place] [address] Care Team Providers Name Role Phone Itzel Dang Care Team Information Medical Cost Consultant Unavailable Itzel Dang Primary Care Physician Unavailable Payers Type Date Identification Numbers Payment Provider Subscriber Effective: Policy Number: [id number] Medicare Blue Ppo Lisa Oreilly 2005 Group Number: [id number] [address] [id number] Group Name: [place] [address] PayID: [id number] Advance Directives Description No Information Available Problems Date Description Provider Status Onset: 06/18/2011 [...] [place] - Breast Ca. Father 64 dt [place]. Mother 87 dt CVA Number of Children None Number of Siblings 7 siblings: 6 girls, 2 boys First Brother age 90 in 2013. First Sister [place], early dementia. LIves in [facility]. Second Sister 93. Nataly. ?Caught something while visiting her daughter in [place]. Social History Type Date Description Comments Sex Unknown Marital Status Patient is single. Partner of 51 years in 2005 from lymphoma. Living Situation Patient lives alone. 91 yr old sister, Nataly, lives in [facility]. Other sister, Serenity Pagan, has Alzheimers and lives in [facility]. Occupation Retired Bookkeeping at [employer] Tobacco Use Start: Unknown Never Smoked Cigarettes ETOH Use Denies alcohol use Tobacco Use Start: Unknown Patient has never smoked Smoking Status Reviewed: 03/26/17 Patient has never smoked Exercise Exercises sporadically, Type/Frequency Current has a home stretching program, nephew mowes the lawn now (2016), does a lot of yardwork. [place]. still does shovelling, housework. Allergies, Adverse Reactions, Alerts Date Description Reaction Status Severity Comments 10/20/1998 Penicillin Active Hives Medications Medication Date Status Form Strength Qnty SIG Indications Ordering Provider Betamethasone 04/01 Active Cream 0.1% 45gm apply twice a R21 Kadi Valerate /2018 day prn to [place], rash on Afnp-C abdomen New Chapter 03/20 Active Itzel Adler Calcium /2018 Breann Dang Meclizine HCL 02/20 Active Tablets 25mg 30tab 1/2 pill by Itzel Adler /2015 s mouth up to [place], three times a M.D. day as needed. MSM 09/01 Active Itzel Adler /2013 Breann Dang One A Day 09/01 Active Itzel Adler Multivitamin /2013 Breann Dang Potassium/Magn 09/01 Active Itzel Adler esium /2013 Breann aDng Fish Oil Active Capsules 1000mg 2 by mouth bid Unknown /0000 New Chapter 11/05 Hx Itzel Adler Vitamin D /2017 [place] - M.D. 03/20 Physical 07/03 Hx evaluate and M81.0 Itzel Adler Therapy /2017 treat fall [place], - prevention and M.D. 10/29 osteoporosis /2017 Physical 07/11 Hx evaluate and M25.551 Itzel Adler Therapy /2016 treat right [place], - hip pain. M.D. 03/26 Meclizine 02/20 Hx 25mg 30uni 1/2 tab po tid Itzel L. /2015 ts [place] - M.D. 02/20 Meloxicam 10/04 Hx Tablets 7.5mg 60tab 1 by mouth 729.5 Nora s twice a day Brown, HIGH TENSION TESTER - 02/06 Vit D3 09/01 Hx 1000iu po Itzel L. /2013 daily [place] - M.D. 11/05 Alendronate 09/01 Hx Tablets 70mg 4tabs take 1 tablet 733.00 Itzel L. Sodium /2013 every week on [place], - an empty M.D. 11/13 stomach. /2013 Stand up for one-half hour after taking it. Betamethasone 07/23 Hx Cream 0.1% 30uni apply to 782.1 Trisha Valerate ts affected Pop, - area(s) two Afnp-C 02/06 times a day /2015 No Active 12/02 Hx Unknown Medications /2012 - 12/02 Gabapentin 02/17 Hx Capsules 100mg 35cap take 2 Sandy s capsules qd Marisa, - for 2 weeks [employer] 05/27 then 1 po qd /2012 for 1 week Gabapentin 01/06 Hx Capsules 300mg 90cap take one Sandy s capsule by Marisa, - mouth three [employer]IC 02/17 times a day /2011 Gabapentin 12/24 Hx Capsules 100mg 90cap take 1 Sandy s capsules every Marisa, - 8 hours [employer]ICE [employer]IC 01/06 Valtrex 12/17 Hx Tablets 1gm 21tab 1 po tid x 7 053.79 Trisha s days may fill Pop, - w/ generic Afnp-C 02/10 PT Referral 06/17 Hx please Darlene Sorenson /2011 evaluate and Anthony, - treat for l M.D. 08/22 upper arm /2011 muscular pain Relafen 08/07 Hx 500mg 30uni 1 po bid with 729.5 Kadi /2010 ts food Amber, - Afnp-C 09/04 Magic 06/14 Hx 500ml 30 ml Kellie Mouthwash /2005 diphenhydramin von - e liquid, 60 [place], 10/01 ml mylanta and M.D. 4 g carafate sig: Swish And Spit bid Fosamax 07/27 Hx Tablets 70mg 4tabs 1 po qweek on empty stomach von - as directed Edwinarlyn, 06/14 M.D. Meclizine 05/24 Hx 25mg 15uni 1/2 tab by Itzel Adler /2004 ts mouth three [place], - times a day M.D. 02/20 Aricept 05/24 Hx 10mg 30uni 1 po qhs ts von Marisa Boyle, 06/14 M.D. Quinine 05/07 Hx Tabs 200mg 30tab 1 po qhs prn Tunde SGael Sulfate s Marisa Mendoza M.D. 06/14 Physical 05/07 Hx Treatment And Tunde Campbell Therapy /2000 Evaluation Marisa Mendoza M.D. 07/06 Shoulder And /2000 Arm Pain Meclizine 02/19 Hx 12.5mg 30uni 1-2 po tid prn Kadi /1999 richard Clark, - Afnp-C 05/27 Immunizations Description No Information Available Vital Signs Date Vital Result Comment 04/01/2018 9:08am BP Systolic 130 mmHg BP Diastolic 76 mmHg Heart Rate 96 /min Body Temperature 98.1 F Respiratory Rate 14 /min Height 55.5 inches 4'7.50" Weight 90.00 lb BMI (Body Mass Index) 20.5 kg/m2 03/20/2018 12:46pm BP Systolic 120 mmHg BP Diastolic 52 mmHg Heart Rate 96 /min Body Temperature 97.6 F Respiratory Rate 17 /min Height 55.5 inches 4'7.50" Weight 90.38 lb BMI (Body Mass Index) 20.6 kg/m2 11/05/2017 12:06pm BP Systolic 140 mmHg BP Diastolic 60 mmHg Heart Rate 78 /min Body Temperature 97.5 F Respiratory Rate 16 /min Height 55.5 inches 4'7.50" Weight 90.50 lb BMI (Body Mass Index) 20.7 kg/m2 08/20/2017 11:37am BP Systolic 118 mmHg BP Diastolic 60 mmHg Heart Rate 84 /min Body Temperature 97.7 F Respiratory Rate 16 /min Height 55.5 inches 4'7.50" Weight 92.12 lb BMI (Body Mass Index) 21.0 kg/m2 07/03/2017 10:22am BP Systolic 132 mmHg BP Diastolic 62 mmHg Heart Rate 72 /min Body Temperature 97.7 F Height 55.5 inches 4'7.50" Weight 92.50 lb BMI (Body Mass Index) 21.1 kg/m2 03/26/2017 9:58am BP Systolic 110 mmHg BP Diastolic 60 mmHg Heart Rate 88 /min Body Temperature 97.9 F Respiratory Rate 18 /min Height 55.5 inches 4'7.50" Weight 88.50 lb BMI (Body Mass Index) 20.2 kg/m2 07/11/2016 12:07pm BP Systolic 120 mmHg BP Diastolic 70 mmHg Heart Rate 72 /min Body Temperature 98.2 F Respiratory Rate 16 /min Height 55.5 inches 4'7.50" Weight 91.44 lb BMI (Body Mass Index) 20.9 kg/m2 02/08/2016 1:02pm BP Systolic 124 mmHg BP Diastolic 62 mmHg Heart Rate 78 /min Body Temperature 97.9 F Height 55.5 inches 4'7.50" Weight 89.00 lb BMI (Body Mass Index) 20.3 kg/m2 10/04/2014 12:49pm BP Systolic 100 mmHg BP Diastolic 70 mmHg Heart Rate 72 /min Body Temperature 98.2 F Respiratory Rate 18 /min Height 55.5 inches 4'7.50" Weight 89.00 lb BMI (Body Mass Index) 20.3 kg/m2 05/21/2014 11:26am BP Systolic 122 mmHg BP Diastolic 82 mmHg Heart Rate 80 /min Body Temperature 97.7 F O2 % BldC Oximetry 55.5 % Height 55.5 inches 4'7.50" Weight 89.00 lb BMI (Body Mass Index) 20.3 kg/m2 11/13/2013 11:05am BP Systolic 90 mmHg BP Diastolic 60 mmHg Heart Rate 84 /min Body Temperature 97.4 F Respiratory Rate 16 /min Height 55.5 inches 4'7.50" Weight 86.00 lb BMI (Body Mass Index) 19.6 kg/m2 09/01/2013 10:37am BP Systolic 90 mmHg BP Diastolic 60 mmHg Heart Rate 90 /min Body Temperature 97.2 F Respiratory Rate 16 /min Height 55.5 inches 4'7.50" Weight 85.25 lb BMI (Body Mass Index) 19.5 kg/m2 Right Visual Acuity Distance 20/50 corrected Left Visual Acuity Distance 20/40 corrected 07/23/2013 10:16am BP Systolic 128 mmHg BP Diastolic 60 mmHg Heart Rate 74 /min Body Temperature 98.3 F Height 55.5 inches 4'7.50" Weight 88.00 lb BMI (Body Mass Index) 20.1 kg/m2 12/02/2012 1:45pm BP Systolic 138 mmHg BP Diastolic 88 mmHg Heart Rate 88 /min Body Temperature 97.9 F Respiratory Rate 16 /min Height 55.5 inches 4'7.50" Weight 88.38 lb BMI (Body Mass Index) 20.2 kg/m2 05/27/2012 10:32am BP Systolic 120 mmHg BP Diastolic 70 mmHg Heart Rate 80 /min Body Temperature 98.0 F Respiratory Rate 16 /min Height 55.5 inches 4'7.50" Weight 90.00 lb BMI (Body Mass Index) 20.5 kg/m2 02/11/2012 10:46am BP Systolic 112 mmHg BP Diastolic 72 mmHg Heart Rate 88 /min Body Temperature 97.6 F Height 56 inches 4'8" Weight 92.00 lb BMI (Body Mass Index) 20.6 kg/m2 12/18/2011 10:26am BP Systolic 130 mmHg BP Diastolic 70 mmHg Heart Rate 80 /min Body Temperature 96.9 F Height 56 inches 4'8" Weight 91.00 lb BMI (Body Mass Index) 20.4 kg/m2 08/23/2011 11:39am BP Systolic 94 mmHg BP Diastolic 56 mmHg Heart Rate 78 /min Body Temperature 98.6 F Height 56 inches 4'8" Weight 88.50 lb BMI (Body Mass Index) 19.8 kg/m2 06/18/2011 3:43pm BP Systolic 110 mmHg BP Diastolic 68 mmHg Heart Rate 96 /min Body Temperature 98.4 F Height 56 inches 4'8" Weight 87.50 lb BMI (Body Mass Index) 19.6 kg/m2 09/04/2010 12:18pm BP Systolic 110 mmHg BP Diastolic 62 mmHg Heart Rate 74 /min Body Temperature 96.8 F Height 56 inches 4'8" Weight 92.00 lb BMI (Body Mass Index) 20.6 kg/m2 08/07/2010 10:22am BP Systolic 100 mmHg BP Diastolic 60 mmHg Heart Rate 68 /min Respiratory Rate 15 /min Height 56 inches 4'8" Weight 93.00 lb BMI (Body Mass Index) 20.8 kg/m2 04/18/2009 12:19pm BP Systolic 124 mmHg BP Diastolic 70 mmHg Heart Rate 102 /min Body Temperature 98.8 F Height 56 inches 4'8" Weight 93.00 lb BMI (Body Mass Index) 20.8 kg/m2 10/17/2006 2:36pm BP Systolic 150 mmHg BP Diastolic 90 mmHg Heart Rate 78 /min Height 56.5 inches 4'8.50" Weight 98.00 lb BMI (Body Mass Index) 21.6 kg/m2 08/02/2006 4:59pm BP Systolic 112 mmHg BP Diastolic 70 mmHg Heart Rate 68 /min Body Temperature 98.3 F Height 56.5 inches 4'8.50" Weight 99.00 lb BMI (Body Mass Index) 21.8 kg/m2 10/01/2005 2:38pm BP Systolic 104 mmHg BP Diastolic 70 mmHg Heart Rate 68 /min Height 56.5 inches 4'8.50" Weight 122.00 lb BMI (Body Mass Index) 26.9 kg/m2 06/14/2005 4:04pm BP Systolic 126 mmHg BP Diastolic 80 mmHg Heart Rate 78 /min Body Temperature 98.9 F Height 56.5 inches 4'8.50" Weight 124.00 lb BMI (Body Mass Index) 27.3 kg/m2 10/05/2004 2:07pm BP Systolic 122 mmHg BP Diastolic 62 mmHg Heart Rate 80 /min Body Temperature 99.5 F Height 56.5 inches 4'8.50" Weight 125.00 lb BMI (Body Mass Index) 27.5 kg/m2 05/24/2004 10:57am BP Systolic 118 mmHg BP Diastolic 60 mmHg Heart Rate 128 /min Height 56.5 inches 4'8.50" Weight 129.00 lb BMI (Body Mass Index) 28.4 kg/m2 10/30/2002 9:34am BP Systolic 108 mmHg BP Diastolic 70 mmHg Heart Rate 88 /min Height 58.5 inches 4'10.50" Weight 126.00 lb BMI (Body Mass Index) 25.9 kg/m2 08/07/2001 3:53pm BP Systolic 120 mmHg BP Diastolic 78 mmHg Heart Rate 80 /min Height 58.5 inches 4'10.50" Weight 129.00 lb BMI (Body Mass Index) 27.0 kg/m2 05/07/2000 10:37am BP Systolic 130 mmHg BP Diastolic 80 mmHg Heart Rate 90 /min Body Temperature 97.5 F Height 56.75 inches 4'8.75" Weight 126.00 lb BMI (Body Mass Index) 28.2 kg/m2 10/20/1998 4:01pm BP Systolic 140 mmHg LA SM Cuff BP Diastolic 72 mmHg LA SM Cuff Heart Rate 72 /min Reg Body Temperature 97.8 F Height 56.75 inches 4'8.75" Weight 121.00 lb 11/17/1996 12:00am BP Systolic 110 mmHg BP Diastolic 72 mmHg Weight 126.00 lb Results Test Date Facility Test Result H/L Range Note Lipid Profile 03/26/2017 Cristino Sharri ([facility]) Cholesterol 230 mg/dL High 120-200 Triglycerides 76 mg/dL 30-200 HDL Cholesterol 89 mg/dL High 30-85 1 LDL (Calculated) 126 CALC 0-129 VLDL Cholesterol 15 mg/dL 0-50 HDL Risk Factor 2.6 CALC 0.0-4.4 Laboratory test finding 03/26/2017 Cristino Harrell (a) TSH 1.95 mIU/L 0.50-6.00 Magnesium, Serum 2.0 mEq/L 1.2-2.1 Comprehensive Metabolic 03/26/2017 Cristino Harrell ([facility]) Sodium 147 mEq/L 134-149 Prof Potassium 4.5 mEq/L 3.6-5.5 Chloride 111 mEq/L [...] >=60 GFR >60 ml/min/1.73m^ >=60 CBC Electronic ([facility]) 03/26/2017 [facility] WBC 5.7 3.6-9.6 (607)- - RBC 4.40 3.90-5.70 Hemoglobin (Fma/CMC/CTX) 13.7 g/dL 12.1 - 17.2 Hematocrit (Fma/CMC/CTX) 41.7 % 36.1 - 50.3 Platelets 202 10^3/ul 150-400 Lymph% 29.8 % 17.0-48.0 Mixed% 5.7 Neutrophils % 64.5 Mean Corpuscular Vol 95 82.2-97.4 Mean Corpuscular Hemoglobin 31.2 27.6-33.3 Mean Corpuscular Hemo Concen 32.9 32.0-36.0 RDW 14.5 High 11.6-13.7 Mean Platelet Volume 7.7 5.5-11.0 Laboratory test finding 02/08/2016 Cristino Harrell ([facility]) TSH 1.70 mIU/L 0.50-6.00 Free T4 1.14 ng/dL 0.75-1.54 CBC Electronic ([facility]) 02/08/2016 [facility] WBC 5.9 3.6-9.6 (607)- - RBC 4.18 3.90-5.70 Hemoglobin (Fma/CMC/CTX) 13.0 g/dL 12.1 - 17.2 Hematocrit (a/CMC/CTX) 40.0 % 36.1 - 50.3 Platelets 215 10^3/ul 150-400 Lymph% 27.1 % 17.0-48.0 Mixed% 5.5 Neutrophils % 67.4 Mean Corpuscular Vol 96 82.2-97.4 Mean Corpuscular Hemoglobin 31.2 27.6-33.3 Mean Corpuscular Hemo Concen 32.6 32.0-36.0 RDW 14.0 High 11.6-13.7 Mean Platelet Volume 7.2 5.5-11.0 Lipid Profile 02/08/2016 Cristino Sharri ([facility]) Cholesterol 254 mg/dL High 120-200 Triglycerides 62 mg/dL 30-200 HDL Cholesterol 101 mg/dL High 30-85 2 LDL (Calculated) 141 CALC High 0-129 VLDL Cholesterol 12 mg/dL 0-50 HDL Risk Factor 2.5 CALC 0.0-4.4 Comprehensive Metabolic 02/08/2016 Cristino Sharri (a) Sodium 142 mEq/L 134-149 Prof Potassium 4.6 mEq/L 3.6-5.5 Chloride 100 mEq/L [...] >=60 GFR >60 ml/min/1.73m^ >=60 Laboratory test 02/08/2016 Cristino Harrell ([facility]) Vitamin B-12 1146 pg/mL High 230-1050 4 finding Folate Level >20.00 ng/mL High 3.00-16.00 CBC Electronic (a) 05/21/2014 [facility] WBC 5.7 3.6-9.6 (607)- - RBC 4.22 3.90-5.70 Hemoglobin (Fma/CMC/CTX) 13.2 g/dL 12.1 - 17.2 Hematocrit (Fma/CMC/CTX) 39.6 % 36.1 - 50.3 Platelets 214 10^3/ul 150-400 Lymph% 29.0 % 17.0-48.0 Mixed% 6.7 Neutrophils % 64.3 Mean Corpuscular Vol 94 82.2-97.4 Mean Corpuscular Hemoglobin 31.4 27.6-33.3 Mean Corpuscular Hemo Concen 33.5 32.0-36.0 RDW 14.5 High 11.6-13.7 Mean Platelet Volume 7.0 5.5-11.0 Laboratory test 05/21/2014 Cristino Harrell ([facility]) Vitamin D25 79 30-100 5 finding Laboratory test 05/21/2014 Cristino Harrell ([facility]) TSH 2.75 mIU/L 0.50- 6.00 finding Comprehensive 05/21/2014 Cristino Harrell ([facility]) Sodium 143 mEq/L 134-149 Metabolic Prof Potassium 4.5 mEq/L 3.6-5.5 Chloride 105 mEq/L [...] 0.4 mg/dL 0.2-1.3 Ua - Non Micro (a) 09/01/2013 [facility] Appearance CLEAR (607)- - Color YELLOW Glucose NEGATIVE Bilirubin NEGATIVE Ketones NEGATIVE SP Grav >=1.030 Blood NEGATIVE PH 5.5 Protein NEGATIVE Urobil 0.2 Nitrite NEGATIVE Leukocytes ([facility]) NEGATIVE Complete Blood Count 09/01/2013 Cristino Harrell ([facility]) WBC 5.0 x10^3/UL 3.6-9.6 RBC 4.16 x10^6/UL 3.90-5.70 HGB 13.6 g/dL 12.1-17.2 HCT 40 % 36-50 MCV 95.0 fL 82.2-97.4 MCH 32.8 pg 27.6-33.3 MCHC 34.5 g/dL 33.0-35.5 RDW 12.2 % 11.6-13.7 PLT 164 x10^3/UL 150-400 MPV 8.5 fL 7.4-10.4 Gran # 2.7 x10^3/UL 1.5-7.2 Lymph# 1.8 x10^3/UL 0.7-4.9 [place]# 0.5 x10^3/UL 0.1-0.9 Gran % 51.5 % 42.2-75.2 Lymph % 36.6 % 20.5-51.1 [place]% 11.9 % High 1.7-9.3 Comprehensive Metabolic 09/01/2013 Cristino Sharri (a) Sodium 136 mEq/L 134-149 Prof Potassium 4.5 mEq/L 3.6-5.5 Chloride 104 mEq/L [...] 0.5 mg/dL 0.2-1.3 Laboratory test finding 09/01/2013 Gregg Sharri (a) Vitamin D25 114 High 30-100 6 TSH 3.68 mIU/L 0.50-6.00 Lipid Profile 09/01/2013 Gregg Sharri (a) Cholesterol 222 mg/dL High 120-200 Triglycerides 67 mg/dL 30-200 HDL Cholesterol 76 mg/dL 30-85 LDL (Calculated) 133 CALC High 0-129 VLDL Cholesterol 13 mg/dL 0-50 HDL Risk Factor 2.9 CALC 0.0-4.4 CBC Electronic ([facility]) 05/27/2012 [facility] WBC 4.9 3.6-9.6 (607)- - RBC 4.32 3.90-5.70 Hemoglobin (Fma/CMC/CTX) 13.6 g/dL 12.1 - 17.2 Hematocrit (Fma/CMC/CTX) 40.8 % 36.1 - 50.3 Platelets 203 10^3/ul 150-400 Lymph% 23.4 20.5-51.1 Mixed% 8.8 Neutrophils % 67.8 Mean Corpuscular Vol 94 82.2-97.4 Mean Corpuscular Hemoglobin 31.5 27.6-33.3 Mean Corpuscular Hemo Concen 33.4 32.0-36.0 RDW 11.7 11.6-13.7 Mean Platelet Volume 7.6 6.5-11.0 Laboratory test finding 05/27/2012 Gregg Sharri ([facility]) TSH 2.85 mIU/L 0.50-6.00 Comprehensive Metabolic 05/27/2012 Gregg Sharri ([facility]) Albumin 4.8 g/dL 3.8-5.5 Prof Alk. Phos. 82 U/L 30-110 Alt (SGPT) [...] 21.1 Calc 8.0-36.0 Ua - Non Micro (Fma) 05/27/2012 Family [facility] Appearance CLEAR (607)- - Color YELLOW Glucose, Urine (Fma/CMC/CTX) - Bilirubin - Ketones - SP Grav 1.020 Blood - PH 6.0 Protein - Urobil 0.2 Nitrite - Leukocytes (a/CMC/[facility]) - Ua - Non Micro ([facility]) 04/18/2009 [facility] Appearance CLEAR (607)- - Color YELLOW Glucose NEG Bilirubin NEG Ketones TRACE # SP Grav 1.025 Blood NEG PH 5.0 Protein NEG Urobil 0.2 Nitrite NEG Leukocytes (a/CMC/[facility]) NEG CBC ([facility]) 04/18/2009 [facility] WBC 6.0 3.6-9.6 (607)- - RBC 4.35 3.90-5.70 Hemoglobin (Fma/CMC/CTX) 13.3 g/dL 12.1 - 17.2 Hematocrit (a/CMC/CTX) 41.5 % 36.1 - 50.3 Mean Corpuscular Vol 95.4 82.2-97.4 Mean Corpuscular Hemaglobin 30.6 27.6-33.3 Mean Corpuscular Hemo Concen 32.0 Low 33.0-36.0 Platelets 166 10^3/ul 150-400 Lymph% 18.5 Low 20.5-51.1 Mixed% 8.3 Neutrophils % 73.2 RDW 12.9 11.6-13.7 Mean Platelet Volume 12.8 High 7.4-10.4 Laboratory test finding 04/18/2009 Gregg Sharri ([facility]) TSH 3.96 mIU/L 0.50-6.00 Comprehensive Metabolic 04/18/2009 Gregg Sharri ([facility]) Albumin 4.4 g/dL 3.8-5.5 Prof Alk. Phos. 63 U/L 30-110 Alt (SGPT) [...] Ratio 20.3 Calc 8.0-36.0 Lipid Profile 04/18/2009 Gregg Sharri ([facility]) Cholesterol 225 mg/dL High 120-200 HDL 62 mg/dL 30-85 Triglycerides 152 mg/dL 30-200 HDL Risk Factor 3.6 CALC Low 4.2-7.0 LDL (Calculated) 132 CALC High 0-129 VLDL (Calculated) 30 mg/dL 0-50 Comprehensive Metabolic 10/17/2006 Gregg Sharri ([facility]) Albumin 4.1 g/dL 3.8-5.5 Prof Alk. Phos. 83 U/L 30-110 Alt (SGPT) [...] 19.0 Calc 8.0-36.0 Complete Blood Count 10/17/2006 Cristino Harrell ([facility]) WBC 6.5 x10\\S\\3/uL 3.6-9.6 Gran# 4.2 x10\\S\\3/uL [...] 11.9 % 11.6-13.7 Laboratory test finding 10/17/2006 Gregg Sharri ([facility]) TSH 2.68 mIU/L 0.50-6.00 B12 518 pg/mL 230-1050 Folate >22.00 ng/mL High 3.00-16.00 Ua - Non Micro ([facility]) 10/17/2006 [facility] Appearance CLEAR (607)- - Color YELLOW Glucose, Urine (a/CMC/CTX) NEG Bilirubin NEG Ketones NEG SP Grav 1.020 Blood NEG PH 5.0 Protein NEG Urobil 0.2 Nitrite NEG Leukocytes ([facility]) NEG Ua - Micro ([facility]) 10/01/2005 [facility] Appearance CLEAR (607)- - Color LT.YELLOW Glucose NEG Bilirubin NEG Ketones NEG SP Grav 1.025 Blood NEG PH 5.0 Protein, Random Urine NEG Urobil 0.2 Nitrite NEG Leukocytes (a/CMC/[facility]) 1+ Hyaline - /Lpf Granular - /Lpf WBC, Fluid 10-12 RBC, Fluid 1-3 Mucus SM AMT /Lpf Epith FEW /Lpf Bacteria TR /Hpf Amorphous - /Lpf Crystals, Urine ([facility]/CTX) - /Lpf Z#Comments - Lipid Profile ([facility]) 05/24/2004 [facility] Cholesterol 217 mg/dL High 120-200 Female (607)- - Triglyceride 136 mg/dL 30-200 HDL-Chol 41 mg/dL 30-85 LDL, Calculated ([facility]) 148 CALC High 0-129 LDL, Direct - mg/dL 0-130 VLDL 27 0-50 HDL Risk Factor ([facility]) 5.2 CALC 4.2-7.0 Laboratory 05/24/2004 [facility] TSH ([facility]) 3.04 0.5- 6.0 test finding (607)- - uIU/ml Folic Acid/B12 05/24/2004 [facility] Folic Acid >22.00 High 3.00- 16.00 Panel (607)- - NG/ML B12 525 pg/mL 230-1050 CBC Electronic ([facility]) 05/24/2004 [facility] WBC 6.8 3.6-9.6 (607)- - Lymphocytes 17.1 % Low 20.5 - 51.1 Monocytes 4.9 % 1.7-9.3 Granulocytes 78.0 % High 42.2 - 75.2 Lymphocytes 1.2 10^3/uL 0.7 - 4.9 Monocytes 0.3 10^3/uL 0.1 - 0.9 Granulocytes 5.3 10^3/uL 1.5 - 7.2 RBC 4.71 3.90-5.70 Hemoglobin ([facility]ma/CMC/CTX) 15.1 g/dL 12.1 - 17.2 Hematocrit ([facility]ma/CMC/CTX) 45.0 % 36.1 - 50.3 Mean Corpuscular Vol 95.6 82.2-97.4 Mean Corpuscular Hemaglobin 32.0 27.6-33.3 Mean Corpuscular Hemo Concen 33.5 33.0-35.5 RDW 12.1 11.6-13.7 Platelets 205. 10^3/ul 150-400 Mean Platelet Volume 7.9 7.4-10.4 Ua - Non Micro ([facility]) 05/24/2004 [facility] Appearance CLEAR (607)- - Color LIGHT YELLOW Glucose NEGATIVE Bilirubin NEGATIVE Ketones NEGATIVE SP Grav >=1.030 Blood NEGATIVE PH 5.0 Protein NEGATIVE Urobil 0.2 Nitrite NEGATIVE Leukocytes NEGATIVE Laboratory test 05/24/2004 [facility] RPR NON-REACTIVE Non-Reactive finding [address] [phone] Comp Metabolic 05/24/2004 [facility] Glucose, 111 mg/dL 70-118 ([facility]) Female (607)- - Serum (Fma/CMC/ CTX) BUN (a/CMC/[facility]) 15 mg/dL 6-26 Creatinine, Serum 0.8 mg/dL 0.6-1.4 BUN/Creatinin Ratio 19.6 8.0-36 Sodium 141 134-149 Potassium 4.2 3.6-5.5 Chloride 99 mEq/L 94-112 Co2 25 21-32 Calcium ([facility]ma/CMC/[facility]) 9.9 mg/dL 8.6-10.2 Total Protein 7.4 g/dL 6.3-8.1 Albumin ([facility]) 4.3 3.8-5.5 Globulin 3.1 2.0-4.8 A/G Ratio (A/G Ratio) 1.4 0.6-2.2 Alkaline Phosphatase (F/C/CTX) 69 U/L 30-110 Alt (SGPT) 24 10-40 Ast (Sgot) ([facility]) 24 U/mL 5-34 Bilirubin, Total 0.3 mg/dL 0.2-1.3 Comp Metabolic ([facility]) 08/15/2001 [facility] Albumin 4.4 3.8-5.5 (607)- - Alkaline Phosphatase 64 U/L 36-117 Bilirubin, Total [...] 0.6-2.2 BUN/Creatinin Ratio 18.6 8.0-36 Lipid Profile ([facility]) 08/15/2001 [facility] Cholesterol 197 mg/dL 140 -200 (607)- - Triglyceride 130 mg/dL 30-150 VLDL 26 0-50 LDL-Calculated 125 0-160 HDL-Chol 46 35-85 CBC With Diff ([facility]) 08/15/2001 [facility] WBC 6.7 3.6-9.6 (607)- - Lymphocytes 28.6 % 20.5 - 51.1 Monocytes [...] Platelet Volume 8.4 7.4-10.4 Ua - Micro ([facility]) 08/12/2001 [facility] Appearance CLEAR YELLOW (607)- - Glucose NEGATIVE Bilirubin NEGATIVE Ketones TRACE [employer] 1.025 Blood NEGATIVE PH 5.5 Protein NEGATIVE Urobilinogen 0.2 Nitrite NEGATIVE Leukocytes TRACE Casts - Granular - WBC 3-5 RBC 0-1 Mucous Threads SMALL AMOUNT Epith MODERATE Bacteria TRACE Amorphous Precipitates - Crystals - Comments - Ua - Micro ([facility]) 05/07/2000 [facility] Appearance HAZY/LT YELLOW (607)- - Glucose NEG Bilirubin NEG Ketones NEG SP Grav >1.030 Blood NEG PH 5.0 Protein NEG Urobil 0.2 Nitrite NEG Leukocytes NEG Hyaline - /Lpf Granular - /Lpf WBC'S 20-30 RBC'S 0-1 Mucus - /Lpf Epith MOD Bacteria 1+ Amorphous - /Lpf Crystals - /Lpf Comments - Comp Metabolic ([facility]) 05/07/2000 [facility] Albumin 4.6 3.8-5.5 (607)- - Alkaline Phosphatase 80 U/L 39-130 Bilirubin, Total [...] 0.6-2.2 BUN/Creatinin Ratio 18.8 8.0-36 Lipid Profile ([facility]) 05/07/2000 [facility] Cholesterol 225 mg/dL High 140-200 (607)- - Triglyceride 143 mg/dL 30-150 VLDL 29 0-50 LDL-Calculated 147 0-160 HDL-Chol 49 35-85 Laboratory test finding 05/07/2000 [facility] TSH 2.58 0.4-4.2 (607)- - CBC With Diff ([facility]) 05/07/2000 [facility] WBC 5.9 3.6-9.6 (607)- - Lymphocytes 20.6 % 20.5 - 51.1 Monocytes [...] Platelet Volume 9.7 7.4-10.4 Ua - Micro (a Old) 10/25/1998 Family [facility] Appearance YEL CLEAR (607)- - SP Grav 1.010 Esterase SMALL Nitrite - [...] result david'd 9 RESULT DAVID'D Procedures Date Code Description Status 05/20/2017 93282 Dxa Bone Density Study One Or More Sites Axial Skeleton Completed 09/11/2013 36084 Dxa Bone Density Vertebarl FX Assessment Completed 09/11/2013 78121 Dxa Bone Density Study One Or More Sites Axial Skeleton Completed 09/01/2013 96340 Vision Test- screening test of visual acuity, Completed quantitative, bila 09/01/2013 83571 Electrocardiogram Complete Completed 12/02/2012 25212 Electrocardiogram Complete Completed 02/21/2012 [id number] Mammogram Completed 04/27/2011 [id number] Mammogram Completed 04/18/2009 10084 Electrocardiogram Complete Completed 11/06/2006 [id number] Mammogram Completed 06/16/2004 [id number] Colonoscopy Completed 08/07/2001 07622 Electrocardiogram Complete Completed 05/07/2000 08422 Electrocardiogram Complete Completed 10/20/1998 02462 Electrocardiogram Complete Completed Encounters Type Date Location Provider Dx Diagnosis Office Visit 03/20/2018 1:00p Main Office Itzel Dang, G25.0 Essential tremor EfrainDGael 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 M79.605 Pain in left leg H81.03 Meniere's disease, bilateral Office Visit 11/05/2017 11:20a Main Office Itzel Adler E55.9 Vitamin D Breann Dang deficiency, unspecified M81.0 Age-related osteoporosis w/o current pathological fracture G25.0 Essential tremor 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 Office Visit 08/20/2017 11:20a Main Office Itzel Adler K62.5 Hemorrhage of anus Breann Dang and rectum Office Visit 07/03/2017 10:40a Main Office Itzel Adler M81.0 Age-related Breann Dang osteoporosis w/o current pathological fracture Office Visit 03/26/2017 10:00a Main Office Itzel Adler Z00.01 Encounter for Breann Dang general adult medical exam w abnormal findings G25.0 Essential tremor M81.0 Age-related osteoporosis w/o current pathological fracture 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 H81.03 Meniere's disease, bilateral R25.2 Cramp and spasm E78.4 Other hyperlipidemia Office Visit 07/11/2016 11:20a Main Office Itzel Adler 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 M25.551 Pain in right hip K11.7 Disturbances of salivary secretion Office Visit 02/08/2016 1:00p Main Office Itzel Dang, Z00.00 Encntr for Breann general adult medical exam w/o abnormal findings G25.0 Essential tremor M81.0 Age-related osteoporosis w/o current pathological fracture R68.89 Other general symptoms and signs G47.62 Sleep related leg cramps E78.4 Other hyperlipidemia M25.551 Pain in right hip Office Visit 10/04/2014 1:00p Main Office Nora Woody NP 729.5 Pain In Limb Office Visit 05/21/2014 11:00a Main Office Itzel Adler 333.1 Tremor Essential & Breann Dang Other Forms 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 Office Visit 12/18/2011 10:30a Main Office Trisha Lord, 053.79 Herpes Zoster Afnp-C W/Other Spec Complications Office Visit 08/23/2011 11:40a Main Office Darlene Sorenson 726.19 Shoulder Disorders Breann Cruz Other Spec Office Visit 06/18/2011 3:20p Main Office Darlene Sorenson 726.19 Shoulder Disorders Breann Cruz Other Spec 333.1 Tremor Essential & Other Forms Office Visit 09/04/2010 12:20p Main Office Kellie rodriguez 729.5 Pain In Limb Breann Boyle Office Visit 08/07/2010 10:00a Main Office Kadi Clark, 729.5 Pain In Limb Afnp-C Office Visit 04/18/2009 12:00p Main Office Kellie rodriguez 783.21 Loss Of Weight Breann Boyle 333.1 Tremor Essential & Other Forms V17.3 History Family Ischemic Heart Disease 386.00 Menieres Disease Unspec 715.09 Osteoarthrosis Generalized Multiple Sites V70.0 Examination General Medical Routine AT Health Care Facility Office Visit 10/17/2006 2:20p Main Office Kellie rodriguez V70.0 Examination General Breann Boyle Medical Routine AT [facility] 783.21 Loss Of Weight 780.4 Dizziness & Giddiness 729.82 Cramp Of Limb Office Visit 08/02/2006 4:30p Main Office PATSY Burch 702.19 Seborrheic Keratosis Other Office Visit 10/01/2005 2:20p Main Office Kellie rodriguez 386.00 Menieres Disease Breann Boyle Unspec V17.3 History Family Ischemic Heart Disease 272.4 Hyperlipidemia Other Unspec 624.8 Vulva & Perineum Disorder Noninflammatory Spec Other V70.0 Examination General Medical Routine AT [facility] Facility 791.7 Cells & Casts In Urine Other Office Visit 06/14/2005 4:00p Main Office Kellie rodriguez 781.1 Smell & Taste Breann Boyle Sensation Disturbances Office Visit 10/05/2004 2:00p Main Office Kellie rodriguez 729.5 Pain In Limb Breann Boyle 733.90 Bone & Cartilage Disorder Unspec Office Visit 05/24/2004 10:20a Main Office Kellie rodriguez 562.11 Diverticulitis Colon Breann Boyle W/O Hemorrhage 386.00 Menieres Disease Unspec 780.93 Memory Loss V17.3 History Family Ischemic Heart Disease V77.91 Screening For Lipoid Disorders V70.0 Examination General Medical Routine AT Health Care Facility Office Visit 10/30/2002 9:20a Main Office Tunde Campbell 386.11 Vertigo Benign Breann Mendoza Paroxysmal Position Office Visit 08/07/2001 3:20p Main Office Tunde Mendoza M.D. Office Visit 05/07/2000 10:20a Main Office Tunde Mendoza M.D. Plan of Treatment Future Appointment(s):09/17/2018 9:40 am - Itzel Dang M.D. at Main [facility]/01/2018 - [facility] Renee-CR21 Rash and other nonspecific skin eruptionNew Medication:Betamethasone Valerate 0.1 % - apply twice a day prn to rash on abdomenAllComments:~B_~U_Medication Management~b_~u_ Patient Understands medications she's taking? Yes No Are there Barriers to Adherence? Yes No Has the patient been asked about herbal supplements and therapies, and OTC meds? Yes No ~B_~U_Care Plan~b_~u_1. Patient has been queried about patient's goals/preferences and functional/ lifestyle goals at relevant visits. If relevant, describe: na2. Treatment goals as explained to the patient: aboveresolution of rash 3. Are there barriers to meeting treatment goals? Yes No If Yes, please describe:4. Self-Management goals as described to the patient: Yes No this may be due to dry skin , I will treat the itch with a corticosteroid cream and continue your emoillents maybe skip a shower and only use soap only on groin , axill andunder breasts
[2018-04-16] MEDS ORDERED: Ondansetron INJ* 2 MG/ML VIAL IV ONE (15:19)
[2018-04-16] MEDS ORDERED: NS 0.9% 1000 ML** 1,000 ML IV ONE (15:19)
--- NOTE | 2018-04-16 15:33 | ED ---
Abdominal Pain/Female - HPI Summary HPI Summary: Patient is a 87 y/o F presenting to ED with complaints of right sided abdominal pain and N/V. Sx onset last night. She denies rashes. No PSHx of abdominal surgery. PMHx of diverticulitis. On triage, pain is rated 3/10, movement is noted to aggravate Sx, nothing is noted to alleviate Sx. Home medications and allergies are reviewed. - History of Current Complaint Chief Complaint: EDAbdPain Stated Complaint: RIGHT SIDE ABD PAIN/VOMITING Time Seen by Provider: 04/16/18 14:58 Hx Obtained From: Patient Onset/Duration: Lasting Days - last night, Still Present Timing: Days - last night Severity Currently: Mild Pain Intensity: 3 Pain Scale Used: 0-10 Numeric - 3/10 Location: Discrete At: RUQ, Discrete At: RLQ Aggravating Factor(s): Movement Alleviating Factor(s): Nothing Associated Signs and Symptoms: Positive: Nausea, Vomiting, Other: - NEGATIVE - RASHES Allergies/Adverse Reactions: Allergies Allergy/AdvReac Type Severity Reaction Status Date / Time Penicillins Allergy Hives Verified 04/16/18 13:48 Home Medications: Home Medications Meclizine TAB* [Antivert 12.5 TAB*] 25 mg PO TID PRN 04/16/18 [History Confirmed 04/16/18] Multivitamins/Minerals TAB* [Theragran/minerals TAB*] 1 tab PO DAILY 04/16/18 [ History Confirmed 04/16/18] PMH/Surg Hx/FS Hx/Imm Hx Respiratory History: Denies: Other Respiratory Problems/Disorders GI History: Reports: Hx Diverticulosis Sensory History: Denies: Hx Legally Blind, Hx Deafness Opthamlomology History: Denies: Hx Legally Blind EENT History: Denies: Hx Deafness - Cancer History Hx Chemotherapy: No Hx Radiation Therapy: No Infectious Disease History: No Infectious Disease History: Denies: Traveled Outside the [place] in Last 30 Days - Family History Known Family History: Positive: Diabetes Negative: Hypertension - Social History Alcohol Use: None Substance Use Type: Reports: None Smoking Status (MU): Former Smoker Review of Systems Positive: Abdominal Pain, Vomiting, Nausea Negative: Rash All Other Systems Reviewed And Are Negative: Yes Physical Exam - Summary Physical Exam Summary: Appearance: Well appearing, no pain distress Skin: warm, dry, reflects adequate perfusion Head/face: normal Eyes: EOMI, BARBARA ENT: normal Neck: supple, non-tender Respiratory: CTA, breath sounds present Cardiovascular: RRR, pulses symmetrical Abdomen: RUQ and RLQ tenderness, soft Musculoskeletal: normal, strength/ROM intact Neuro: normal, sensory motor intact, A&Ox3 Triage Information Reviewed: Yes Vital Signs On Initial Exam: Initial Vitals Temp Pulse Resp BP Pulse Ox 100.3 F 114 19 127/87 97 04/16/18 13:44 04/16/18 13:44 04/16/18 13:44 04/16/18 13:44 04/16/18 13:44 Vital Signs Reviewed: Yes Diagnostics - Vital Signs Vital Signs Temp Pulse Resp BP Pulse Ox 04/16/18 13:44 100.3 F 114 19 127/87 97 - Laboratory Result Diagrams: 04/16/18 15:35 04/16/18 15:35 Lab Statement: Any lab studies that have been ordered have been reviewed, and results considered in the medical decision making process. - Radiology CXR Radiology Interpretation Completed By: Radiologist Summary of Radiographic Findings: CXR IMPRESSION: NO EVIDENCE FOR ACUTE DISEASE. THIS REPORT WAS REVIEWED BY ED PHYSICIAN. - CT abd/pel ct CT Interpretation Completed By: Radiologist Summary of CT Findings: IMPRESSION: 1. There is a small hiatal hernia. 2. There is cholelithiasis without pericholecystic inflammatory change. 3. There is colonic diverticulosis without evidence for acute diverticulitis. 4. The appendix is unremarkable. 5. There are borderline prominent small bowel loops with some air-fluid levels. but oral contrast extends through the small bowel into the colon and therefore. not consistent with significant small bowel obstruction, cannot exclude mild. ileus. This report was reviewed by ED physician. - Ultrasound No standard instances Ultrasound Interpretation Completed By: Radiologist Summary of Ultrasound Findings: US GALLBLADDER IMPRESSION: CHOLELITHIASIS WITHOUT SONOGRAPHIC FINDINGS CONSISTENT WITH BILIARY OBSTRUCTION OR ACUTE. INFLAMMATORY CHANGE ASIDE FROM A POSITIVE SONOGRAPHIC BUCIO SIGN. THIS REPORT WAS REVIEWED BY ED PHYSICIAN. - EKG 1542 Cardiac Rate: NL - rate of 91 BPM EKG Rhythm: Sinus Rhythm Summary of EKG Findings: EKG showed sinus rhythm with rate of 91 BPM, no acute changes. Re-Evaluation - Re-Evaluation First Eval Re-Evaluation Time: 19:13 Comment: Results of labs and tests were discussed with patient. She will be discharged to home and follow up with PCP and surgery. She is agreeable with this. Abdominal Pain Fem Course/Dx - Course Course Of Treatment: Patient is a 87 y/o F presenting to ED with complaints of right sided abdominal pain and N/V. Sx onset last night. She denies rashes. No PSHx of abdominal surgery. PMHx of diverticulitis. On physical exam, RLQ and RUQ tenderness is noted. EKG showed sinus rhythm with rate of 91 BPM, no acute changes. Bloodwork, UA obtained. During ED course, patient received fluids and Zofran 4 mg IV. CXR IMPRESSION: NO EVIDENCE FOR ACUTE DISEASE. US GALLBLADDER IMPRESSION: CHOLELITHIASIS WITHOUT SONOGRAPHIC FINDINGS CONSISTENT WITH BILIARY OBSTRUCTION OR ACUTE. INFLAMMATORY CHANGE ASIDE FROM A POSITIVE SONOGRAPHIC BUCIO SIGN. Abd/pel CT. IMPRESSION: 1. There is a small hiatal hernia. 2. There is cholelithiasis without pericholecystic inflammatory change. 3. There is colonic diverticulosis without evidence for acute diverticulitis. 4. The appendix is unremarkable. 5. There are borderline prominent small bowel loops with some air-fluid levels. but oral contrast extends through the small bowel into the colon and therefore. not consistent with significant small bowel obstruction, cannot exclude mild. ileus. This report was reviewed by ED physician. Results of labs and tests were discussed with patient. She will be discharged to home and follow up with PCP and surgery. She is agreeable with this. - Diagnoses Differential Diagnosis: Positive: Gall Bladder Disease, Renal Colic, Urinary Tract Infection Provider Diagnoses: Cholelithiasis Discharge - Sign-Out/Discharge Documenting (check all that apply): Patient Departure - discharge Patient Received Moderate/Deep Sedation with Procedure: No - NO PROCEDURES DONE - Discharge Plan Condition: Stable Disposition: HOME Patient Education Materials: Gallstones (ED) Referrals: Itzel Dang MD [Primary Care Provider] - 3 Days Sri Green MD [Medical Doctor] - 3 Days Additional Instructions: RETURN TO ED WITH ANY NEW OR WORSENING SYMPTOMS. FOLLOW UP WITH PRIMARY CARE PHYSICIAN AND SURGERY WITHIN THREE DAYS. - Billing Disposition and Condition Condition: STABLE Disposition: Home - Attestation Statements Document Initiated by Scribe: Yes Documenting Scribe: BUSHRA FUENTES Provider For Whom Scribe is Documenting (Include Credential): RAYA PASTOR MD Scribe Attestation: I, BUSHRA FUENTES , scribed for RAYA PASTOR MD on 04/16/18 at 1930. Scribe Documentation Reviewed: Yes Provider Attestation: The documentation as recorded by the scribeBUSHRA accurately reflects the service I personally performed and the decisions made by me, RAYA PASTOR MD Status of Scribe Document: Viewed
[2018-04-16 16:07] LABS: Urine Appearance Turbid; Urine Bilirubin Negative (Negative); Urine Blood Negative (Negative); Urine Color Yellow; Urine Glucose Negative (Negative); Urine Ketones Trace (Negative); Urine Nitrite Negative (Negative); Urine Protein Negative (Negative); Urine Urobilinogen Negative (Negative)
[2018-04-16 16:09] LABS: ABS Basophils 0 10^3/ul (0-0.2); ABS Eosinophils 0 10^3/ul (0-0.6); ABS Lymphocytes 0.8 10^3/ul (1.0-4.8); ABS Monocytes 0.7 10^3/ul (0-0.8); ABS Neutrophils 7.9 10^3/ul (1.5-7.7); ABS Nucleated RBC 0 10^3/ul; Eosinophil % 0.1 %; Hematocrit 40 % (35-47); Hemoglobin 13.2 g/dl (12.0-16.0); Lymphocyte % 8.8 %; Mean Corpuscular HGB Conc 33 g/dl (31-36); Mean Corpuscular Hemoglobin 32 pg (27-31); Mean Corpuscular Volume 96 fL (80-97); Nucleated Red Blood Cells % 0.1; Platelet Count 176 10^3/ul (150-450); Red Blood Count 4.16 10^6/ul (4.00-5.40); Red Cell Distribution Width 13 % (10.5-15); White Blood Count 9.4 10^3/ul (3.5-10.8)
[2018-04-16 16:17] LABS: Activated Partial Thrombo Time 26.5 seconds (26.0-36.3); INR 0.85 (0.77-1.02)
[2018-04-16 16:34] LABS: Albumin 4.2 g/dL (3.2-5.2); Albumin/Globulin Ratio 1.4 (1-3); BUN/Creatinine Ratio 21.4 (8-20); C Reactive Protein 8.12 mg/L (<8.01); Calcium 10.2 mg/dL (8.6-10.3); EGFR African American 77.4 (>60); Globulin 2.9 g/dL (2-4); Potassium 4.2 mmol/L (3.5-5.0); Total Bilirubin 0.7 mg/dL (0.2-1.0); Total Protein 7.1 g/dL (6.4-8.9)
[2018-04-16 16:35] LABS: Troponin I 0.01 ng/mL (<0.04)
[2018-04-16] MEDS ORDERED: Iohexol 300* (CONTRAST) 10 ML SDV IV ONE (18:03)
[2018-04-16 19:33] VITALS: BP 131/75
== END 2018-04-16 19:34 | disposition home or self-care (01) ==
LOC: ED 13:41
DX: K80.20 Calculus of gallbladder without cholecystitis without obstruction (principal); R11.2 Nausea with vomiting, unspecified; R10.9 Unspecified abdominal pain; Z88.0 Allergy status to penicillin; Z87.891 Personal history of nicotine dependence
CPT/HCPCS: 36415; 71045; 74177; 76705; 80053; 81003; 83605; 83690; 84484; 85025; 85610; 85730; 86140; 93005; 96361; 96374; 99283; J2405; Q9967

== ENCOUNTER 2018-05-09 05:45 | Day surgery (SDC) | payer MEDICARE ==
--- NOTE | 2018-04-28 16:26 | HP ---
CC: Dr. Itzel Dang * PREOPERATIVE HISTORY AND PHYSICAL: DATE OF ADMISSION/SURGERY: 05/09/18 This patient is scheduled for same-day surgery admission by Dr. Green on 05/09/18. DATE OF EXAMINATION: 04/25/18. ATTENDING SURGEON: Dr. Sri Green * (dictated by Hanna Brenner NP). CHIEF COMPLAINT: Right upper quadrant abdominal pain. HISTORY OF PRESENT ILLNESS: The patient is an 87-year-old female with a history of diverticulosis, who presented to the emergency department on with complaints of right-sided abdominal pain, nausea and vomiting. Right upper quadrant ultrasound showed cholelithiasis; CT of the abdomen showed cholelithiasis without inflammatory changes. Her white blood cell count was elevated. Her lipase was mildly elevated. Her symptoms improved and she was discharged from the emergency department for followup with [facility] and her primary care provider. She states that she never had that type of severe pain before and she does not think it was postprandial. She reports that she still has some mild right upper quadrant abdominal pain that is worse when she is trying to position herself in bed at night. She is tolerating a low fat diet; she denies any vomiting or change in the color of urine or stool. Dr. Green examined the patient and reviewed the imaging and appropriate lab results. Dr. Green has recommended laparoscopic cholecystectomy as a same-day surgery procedure and she discussed the rationale for the surgery, the nature of the surgical procedure, the relevant risks and benefits and today, I reviewed the expected postoperative care and recovery. The patient has had a chance to ask questions and stated that she understands the information and is satisfied with the answers given to her questions. She will sign surgical consent on the day of surgery. PAST MEDICAL HISTORY: Significant for diverticulosis, essential tremor, and shingles. PAST SURGICAL HISTORY: None. MEDICATIONS: 1. Meclizine 25 mg 1 tablet every 8 hours p.r.n. vertigo. 2. Multivitamin daily. 3. Fish oil supplement daily, which she will hold for 1 week preoperatively. 4. Magnesium oxide 400 mg p.o. daily. 5. Potassium 99 mg [id number] daily. 6. Calcium plus vitamin D supplement daily. ALLERGIES: PENICILLIN has caused hives. FAMILY HISTORY: No known anesthesia complications, bleeding tendencies, or clotting disorders. SOCIAL HISTORY: She is single and lives alone. Her nephew and his accompanied her to the visit today and they will be supportive to her postoperatively. She is a former smoker, quit many years ago. She denies the use of alcohol or other substances. REVIEW OF SYSTEMS: Constitutional: No fevers, chills, or excessive fatigue. Ear, Nose, Mouth and Throat: Denies ear, nasal, mouth, or throat symptoms. Cardiovascular: No anginal chest pain or palpitations. No history of heart attack. Respiratory: No shortness of breath or chronic cough. Gastrointestinal: As described in history of present illness. She denies nausea , vomiting, constipation, diarrhea, or blood in stools. Genitourinary: Denies dysuria or blood in urine. Musculoskeletal: Occasional aching in the left deltoid region. No other complaints of arthritic pain. General: No history of deep vein thrombosis or pulmonary embolism. Endocrine: No diabetes or thyroid disease. Neurologic: No current dizziness or migraine headaches. No areas of numbness. PHYSICAL EXAMINATION GENERAL SURVEY: The patient is an 87-year-old female, well developed, well nourished, in no acute distress. VITAL SIGNS: Height 59 inches, weight 90 pounds, body mass index 18.2. Blood pressure 130/74, pulse 80 and regular, respiratory rate 16, temperature 97.6 tympanic. HEENT: Benign. Anicteric sclerae. NECK: Supple. No cervical lymphadenopathy. LUNGS: Breath sounds bilaterally clear and equal. HEART: Regular rate and rhythm. ABDOMEN: Active bowel sounds. Soft, nondistended. Mild tenderness in the right upper quadrant. Negative Godoy's sign. No guarding or rebound. No obvious masses or organomegaly. PELVIC: Exam deferred. RECTAL: Exam deferred. EXTREMITIES: Warm and well perfused. No edema. Steady gait. No skin ulcerations. NEUROLOGIC: Alert and oriented x3. SKIN: Warm, dry, intact. No jaundice. IMPRESSION: Symptomatic cholelithiasis. PLAN: Same-day surgery admission to Dr. Green's service on 05/09/18, for laparoscopic cholecystectomy. TOYIN BRENNER, SURGERY MANAGER [id number]/[facility] #: [id number] [facility]
[~2018-05-09 05:45] MED LIST: Buffered Lidocaine 1% SYRIN* 1 ML/SYRINGE INTRADERM ONE
[2018-05-09] MEDS ORDERED: Famotidine IV* 10 MG/ML 2 ML (20 mg) IV ONE (06:00)
[2018-05-09] MEDS ORDERED: Lactated Ringers 1000 ML Bag* 1,000 ML IV SCH (06:00)
[2018-05-09] MEDS ORDERED: Bupivacaine 0.5%* 50 ML VIAL ONE (06:40)
[2018-05-09] MEDS ORDERED: Bupivacaine 0.25% W/EPI* 10 ML SDV ONE (06:40)
[2018-05-09] MEDS ORDERED: Clindamycin 900 MG/D5W BAG(*) 900 MG/50 ML BAG IVPB ONE (06:44)
[2018-05-09] MEDS ORDERED: Famotidine IV* 10 MG/ML 2 ML (20 mg) ONE (06:44)
[2018-05-09] MEDS ORDERED: Propofol* 10 MG/ML 20 ML BTL ONE (07:08)
[2018-05-09] MEDS ORDERED: fentaNYL* 50 MCG/ML 2 ML VIAL (100 MCG VIAL) ONE (07:08)
[2018-05-09] MEDS ORDERED: Ondansetron INJ* 2 MG/ML VIAL ONE (07:08)
[2018-05-09] MEDS ORDERED: Phenylephrine INJ* 10 MG/ML 1 ML VIAL (10 MG) ONE (07:08)
[2018-05-09] MEDS ORDERED: Ketorolac INJ* 30 MG/ML 1 ML VIAL ONE (07:08)
[2018-05-09] MEDS ORDERED: Dexamethasone IV* 4 MG/ML 1 ML (4 MG) ONE (07:08)
[2018-05-09] MEDS ORDERED: Cisatracurium* 2 MG/ML MDV 5 ML ONE (07:08)
[2018-05-09] MEDS ORDERED: Lidocaine 2% PF * 5 ML VIAL ONE (07:08)
[2018-05-09] MEDS ORDERED: Midazolam* 1 MG/ML 5 ML VIAL (5 MG) ONE (07:09)
[2018-05-09] MEDS ORDERED: Neostigmine Methylsulfate* 1 MG/ML 10 ML VIAL (1 mg/ml) ONE (08:27)
[2018-05-09] MEDS ORDERED: Glycopyrrolate IV* 0.2 MG/ML 1 ML VIAL ONE (08:27)
[2018-05-09] MEDS ORDERED: fentaNYL* 50 MCG/ML 2 ML VIAL (100 MCG VIAL) IV PRN (08:32)
[2018-05-09] MEDS ORDERED: Naloxone* 0.4 MG/ML 1 ML VIAL IV PRN (08:32)
[2018-05-09] MEDS ORDERED: Ondansetron INJ* 2 MG/ML VIAL IV PRN (08:32)
[2018-05-09] MEDS ORDERED: Acetaminophen IV 1GM/100ML * 10 MG/ML VIAL IVPB ONE (08:32)
--- NOTE | 2018-05-09 08:42 | OP ---
Operative Report - Blank - Operative Report Date of Operation: 05/09/18 Note: Brief Operative Note Preop Dx: symptomatic cholelithiasis Postop Dx: same Procedure: laparoscopic cholecystectomy Anesthesia: GET Surgeon: Peter Drain Cleaner: ERIKA Keane Fluids: 1000 ml RL EBL: < 10 ml Specimen: gallbladder Drains: none Findings: dictated
[2018-05-09] MEDS ORDERED: Acetaminophen IV 1GM/100ML * 100 ML ONE (09:12)
--- NOTE | 2018-05-09 10:31 | OP ---
OPERATIVE REPORT: DATE OF OPERATION: 05/09/18 DATE OF : [birth year] SERVICE: General Surgery. SURGEON: Sri Green MD. BICYCLE DESIGNER: ERIKA Baumann. ANESTHESIOLOGIST: Dr. Sampson Castañeda. ANESTHESIA: General endotracheal anesthesia. PRE-OP DIAGNOSIS: Biliary colic. POST-OP DIAGNOSIS: Biliary colic. OPERATIVE PROCEDURE: Laparoscopic cholecystectomy. SPECIMEN: Gallbladder. ESTIMATED BLOOD LOSS: Minimal, less than 10 cc. INDICATION FOR SURGERY: Ms. Oreilly is a very pleasant 87-year-old female with a history of tremors, otherwise healthy, who had presented to the emergency room last month with biliary colic. She was found on imaging to have cholelithiasis and very mildly elevated LFTs. For this reason she wished to undergo a laparoscopic cholecystectomy and she gave informed consent for a laparoscopic cholecystectomy. She understood the risks, benefits, and alternatives of the procedure and she wished to proceed. DESCRIPTION OF PROCEDURE: The patient was brought back to the operating room and placed on the operating table in the supine position. Venodyne boots were placed on the bilateral lower extremities for DVT prophylaxis. Antibiotic with clindamycin was administered given that the patient has a PENICILLIN allergy. General endotracheal anesthesia was induced and the patient's abdomen was prepped and draped in the normal sterile fashion and her left arm was tucked. Prior to beginning the procedure, a time-out was performed verifying the patient 's name, MR number, and the procedure to be performed. Marcaine 0.25% was infiltrated into the infraumbilical fold and the skin was divided down to the subcutaneous tissue. The fascia was elevated with 2 Marino clamps and divided and the abdomen was entered under direct visualization. An 0 Vicryl suture was placed in a uxoarj-ca-jveev fashion at the fascia in order to facilitate later closure. Next, a Monserrat trocar was placed into the abdomen, insufflation was obtained to 15 mmHg, and a laparoscope was placed into the abdomen. Upon general inspection of the abdominal cavity, there was no apparent injury that had been made upon entry into the abdomen. The gallbladder was noted to be in the right upper quadrant. It appeared to be distended, but not acutely inflamed. Next, 0.25% Marcaine was infiltrated into 3 locations for the 3 upper abdominal trocar sites. Then, three 5 mm trocars were placed under direct visualization, one just to the right of the falciform, one in the right upper abdomen, and one in the right lateral abdomen. Next, the fundus of the gallbladder was grasped and elevated off the liver. The infundibulum was grasped and retracted outwards and then the peritoneum on either side of the gallbladder was divided after taking down some fatty omentum. Once this was done, the cystic duct and cystic artery were then skeletonized and the critical view was obtained, visualizing the liver bed between both the cystic artery and cystic duct. Next, the cystic duct and cystic artery were then doubly clipped proximally and singly clipped distally and then the structures were divided. Next, the gallbladder was then taken off the liver bed using electrocautery and placed into an EndoCatch bag and removed from the abdomen as specimen. On careful inspection of the liver bed, there were some very tiny areas of punctate bleeding that were cauterized. There was no spillage of bile or stones in the abdominal cavity, so no irrigation was performed. The right upper quadrant was investigated. There was no fluid and the clips were noted to be secured on the cystic duct and cystic artery. A final inspection of the liver bed showed that it was hemostatic. Therefore, the Monserrat trocar was removed under direct visualization and the previously placed 0 Vicryl suture was then used to close the fascia under direct visualization to ensure that nothing was caught during this closure. After this was done, desufflation was obtained and the remaining three 5 mm trocars were removed under direct visualization and all the skin was closed using 4-0 Monocryl suture. Sterile dressing was then placed and the patient's general anesthesia was reversed and she was taken to the PACU in stable condition. At the end of the case, all counts were correct and I was present during the entirety of the case. [id number]/[facility] #: [id number] MTDD
[2018-05-09 11:07] VITALS: BP 112/66
== END 2018-05-09 11:17 | disposition home or self-care (01) ==
LOC: OR 05:45
PROVIDERS: ATTEND Surgery
DX: K80.10 Calculus of gallbladder with chronic cholecystitis without obstruction (principal); M19.90 Unspecified osteoarthritis, unspecified site; G25.0 Essential tremor; R42 Dizziness and giddiness
CPT/HCPCS: 88304; J1100; J1885; J2250; J2405; J2704; J2710; J3010

== ENCOUNTER 2018-07-10 01:30 | Observation (INO) | payer MEDICARE ==
[2018-07-10] MEDS ORDERED: Acetaminophen TAB* 325 MG ONE (01:52)
[2018-07-10] MEDS ORDERED: Ondansetron INJ* 2 MG/ML VIAL ONE (01:52)
[2018-07-10] MEDS ORDERED: Ondansetron INJ* 2 MG/ML VIAL IV ONE (01:57)
[2018-07-10] MEDS ORDERED: Acetaminophen TAB* 325 MG PO ONE (01:57)
[2018-07-10] MEDS ORDERED: NS 0.9% 1000 ML** 1,000 ML IV.FLUID IV ONE (02:00)
--- NOTE | 2018-07-10 02:24 | ED ---
HPI Febrile Illness - HPI Summary HPI Summary: The patient is an 87 y/o F presenting to [facility] with a chief complaint of fever and chills onset last night [employer] this morning. She additionally c/o rhinorrhea and nausea. She denies cough, sore throat, dysuria, hematuria, changes in urination, and abd pain except pain secondary to a fall she had a week ago. She is not currently in any pain. She lives by herself. - History of Current Complaint Chief Complaint: EDFever Time Seen by Provider: 07/10/18 02:01 Hx Obtained From: Patient Onset/Duration: Started Hours Ago - last night, Still Present Timing: Lasting Hours Initial Severity: Mild Current Severity: Mild Pain Intensity: 0 Pain Scale Used: 0-10 Numeric Aggravating Factors: Nothing Alleviating Factors: Nothing Associated Signs and Symptoms: Chills, Other: - POSITIVE: rhinorrhea; NEGATIVE: cough, sore throat, dysuria, hematuria, changes in urination - Allergy/Home Medications Allergies/Adverse Reactions: Allergies Allergy/AdvReac Type Severity Reaction Status Date / Time Penicillins Allergy Severe Hives Verified 05/09/18 06:33 PMH/Surg Hx/FS Hx/Imm Hx Endocrine/Hematology History: Denies: Hx Diabetes Cardiovascular History: Denies: Hx Hypertension Respiratory History: Denies: Other Respiratory Problems/Disorders GI History: Reports: Hx Diverticulosis, Other GI Disorders - diverticulosis Musculoskeletal History: Reports: Hx Arthritis - shoulder, fingers, knees Sensory History: Reports: Hx Cataracts - left eye very start of, Hx Contacts or Glasses Denies: Hx Legally Blind, Hx Deafness, Hx Hearing Aid Opthamlomology History: Reports: Hx Cataracts - left eye very start of, Hx Contacts or Glasses Denies: Hx Legally Blind Neurological History: Reports: Other Neuro Impairments/Disorders - essential tremor Psychiatric History: Reports: Hx Depression - occassionally - Cancer History Hx Chemotherapy: No Hx Radiation Therapy: No - Surgical History Surgery Procedure, Year, and Place: cholecystectomy in 2018 Infectious Disease History: Yes Infectious Disease History: Denies: Traveled Outside the [place] in Last 30 Days - Family History Known Family History: Positive: Diabetes Negative: Hypertension - Social History Lives: Alone Alcohol Use: None Hx Substance Use: No Substance Use Type: Reports: None Hx Tobacco Use: Yes Smoking Status (MU): Former Smoker Review of Systems Positive: Fever, Chills Positive: Other - rhinorrhea. Negative: Sore Throat Negative: Cough Positive: Nausea. Negative: Abdominal Pain Positive: other - NEGATIVE: changes in urination. Negative: dysuria, hematuria All Other Systems Reviewed And Are Negative: Yes Physical Exam - Summary Physical Exam Summary: Appearance: well appearing, no pain distress Skin: hot, dry, reflects adequate perfusion, hematoma on RUE, bruise on right breast, no rashes Head/face: normal Eyes: EOMI, BARBARA ENT: mucous membranes moist Neck: supple, non-tender Respiratory: CTA, breath sounds present Cardiovascular: Tachycardic, pulses symmetrical Abdomen: non-tender, soft Bowel Sounds: present Musculoskeletal: normal, strength/ROM intact Neuro: normal, sensory motor intact, A&Ox3 Triage Information Reviewed: Yes Vital Signs On Initial Exam: Initial Vitals Temp Pulse Resp BP Pulse Ox 101.6 F 123 22 151/78 94 07/10/18 01:33 07/10/18 01:33 07/10/18 01:33 07/10/18 01:33 07/10/18 01:33 Vital Signs Reviewed: Yes Diagnostics - Vital Signs Vital Signs Temp Pulse Resp BP Pulse Ox 07/10/18 02:14 98 07/10/18 01:51 112 17 148/81 98 07/10/18 01:45 120 91 07/10/18 01:33 101.6 F 123 22 151/78 94 - Laboratory Result Diagrams: 07/10/18 02:15 07/10/18 02:15 Lab Statement: Any lab studies that have been ordered have been reviewed, and results considered in the medical decision making process. - Radiology CXR Radiology Interpretation Completed By: Radiologist Summary of Radiographic Findings: No acute findings. ED physician has reviewed this report. - EKG 0231 Cardiac Rate: Tachycardia - 105 BPM EKG Rhythm: Sinus Tachycardia Summary of EKG Findings: Tachycardia at 105 BPM. Normal axis. Normal interval. Nonspecific ST. Re-Evaluation - Re-Evaluation First Eval Re-Evaluation Time: 03:00 Change: Unchanged Comment: We discussed the need for admission due to symptomology and results thus far. She agrees with this plan. Course/Dx - Course Course Of Treatment: Nurses notes reviewed. Patient presents with high fever without any apparent source. No cough, congestion or urinary symptoms. Abdomen is soft and nontender. Urine is negative and chest x-ray is clear. Flu testing is negative. Laboratories are benign appearing however the patient still has rigor and tachycardia to 117. IV Rocephin and IV fluids were given and the patient was treated for fever. She'll be admitted to the hospitalist service for observation and further evaluation/treatment. - Febrile Illness Differential Diagnoses: Abd. Infection, Bacteremia, Cellulitis, Medication Reaction, Meningitis, Neoplasm, Pneumonia, Pyelonephritis - Diagnoses Provider Diagnoses: Fever, Sepsis - Provider Notifications Discussed Care Of Patient With: Sarai Linares - hospitalist Time Discussed With Above Provider: 03:10 Instructed by Provider To: Other - Dr. Linares accepts the patient for admission at this time. Discharge - Sign-Out/Discharge Documenting (check all that apply): Patient Departure - Patient will be admitted to [facility] [place] further care by Dr. Linares. Patient Received Moderate/Deep Sedation with Procedure: No - Discharge Plan Condition: Fair Disposition: ADMITTED TO [facility] - Billing Disposition and Condition Condition: FAIR Disposition: Admitted to [facility] - Attestation Statements Document Initiated by Atilio: Yes Documenting Scribe: Diana Nicholson Provider For Whom Atilio is Documenting (Include Credential): Dr. Mateo Aj MD Scribe Attestation: Diana Gallegos scribed for Dr. Mateo Aj MD on 07/10/18 at 0508. Scribe Documentation Reviewed: Yes Provider Attestation: The documentation as recorded by the Diana sadler accurately reflects the service I personally performed and the decisions made by me, Dr. Mateo Aj MD Status of Scribe Document: Viewed
[2018-07-10 02:34] LABS: ABS Basophils 0 10^3/ul (0-0.2); ABS Eosinophils 0 10^3/ul (0-0.6); ABS Lymphocytes 0.3 10^3/ul (1.0-4.8); ABS Monocytes 0 10^3/ul (0-0.8); ABS Neutrophils 6.8 10^3/ul (1.5-7.7); ABS Nucleated RBC 0 10^3/ul; Eosinophil % 0.2 %; Hematocrit 35 % (33-41); Hemoglobin 11.8 g/dL (12.0-16.0); Lymphocyte % 3.6 %; Mean Corpuscular HGB Conc 34 g/dL (31-36); Mean Corpuscular Hemoglobin 32 pg (27-31); Mean Corpuscular Volume 96 fL (80-97); Mean Platelet Volume 7.8 fL (7.4-10.4); Nucleated Red Blood Cells % 0; Platelet Count 171 10^3/uL (150-450); Red Blood Count 3.69 10^6 /uL (3.70-4.87); Red Cell Distribution Width 13 % (10.5-15); White Blood Count 7.1 10^3/uL (3.5-10.8)
[2018-07-10 02:41] LABS: INR 0.93 (0.82-1.09)
[2018-07-10 02:53] LABS: Albumin 3.5 g/dL (3.2-5.2); Albumin/Globulin Ratio 1.2 (1-3); BUN/Creatinine Ratio 25.3 (8-20); C Reactive Protein 4.94 mg/L (<8.01); Calcium 9.3 mg/dL (8.6-10.3); EGFR African American 88.2 (>60); EGFR Non-African American 72.9 (>60); Globulin 2.9 g/dL (2-4); Potassium 4.1 mmol/L (3.5-5.0); Total Bilirubin 0.5 mg/dL (0.2-1.0); Total Protein 6.4 g/dL (6.4-8.9)
[2018-07-10 02:54] LABS: Troponin I 0.01 ng/mL (<0.04)
[2018-07-10 02:54] LABS: Influenza A Molecular NEGATIVE (Negative); Influenza B Molecular NEGATIVE (Negative)
[2018-07-10] MEDS ORDERED: cefTRIAXone(*) 1 GM in NS 0.9% 50 ML* 50 ML IVPB ONE (02:57)
[2018-07-10 03:00] LABS: Urine Appearance Clear; Urine Bilirubin Negative (Negative); Urine Blood Negative (Negative); Urine Color Yellow; Urine Glucose Negative (Negative); Urine Ketones Negative (Negative); Urine Nitrite Negative (Negative); Urine Protein Negative (Negative); Urine Specific Gravity 1.012 (1.010-1.030); Urine Urobilinogen Negative (Negative)
[2018-07-10] MEDS ORDERED: Acetaminophen TAB* 325 MG PO PRN (03:33)
[2018-07-10] MEDS ORDERED: Ondansetron INJ* 2 MG/ML VIAL IV PRN (03:33)
[2018-07-10] MEDS ORDERED: Al Hydrox/Mg Hydrox/Simet LIQ* 30 ML UDC PO PRN (03:33)
[2018-07-10] MEDS ORDERED: Senna TAB PO PRN (03:33)
[2018-07-10] MEDS ORDERED: Docusate CAP* 100 MG PO PRN (03:33)
[2018-07-10] MEDS ORDERED: Meclizine TAB* 12.5 MG PO PRN (03:35)
[2018-07-10] MEDS: Heparin VIAL(*) 5000 UNITS/ML VIAL (FIVE THOUSAND) SUBCUT SCH ×2 (05:26→13:47)
--- NOTE | 2018-07-10 07:29 | HP ---
CC: Itzel Dang MD* HISTORY AND PHYSICAL: DATE OF ADMISSION: 07/10/18 TIME OF EVALUATION: 0300 PRIMARY CARE PHYSICIAN: Itzel Dang MD. CHIEF COMPLAINT: Fever and shaking. HISTORY OF PRESENT ILLNESS: This is an 87-year-old female with unremarkable past medical history, who presented to the emergency room with acute onset last evening of shaking, trembling. Found to have a fever in the emergency room. She states she had 1 episode of vomiting. No further episodes. No nausea, no diarrhea, no abdominal pain. She denies any upper respiratory symptoms. No cough, no shortness of breath, no chest pain. She states she did have diarrhea at one point, but does not seem to be within the past 24 hours. She states she has a scabby rash on her back that is not itchy. She states on 07/06/18, she feel off a chair because a dog got in her way and she feel on her chest and bruised her right arm. No wounds or opening that she knows of. No headache. No neck pain. Otherwise, review of systems is negative. In the emergency room, the patient had labs and imaging. She was given 1220 mL of normal saline, Zofran 4 mg, ceftriaxone 1 g, Tylenol, and referred to the hospitalist service for further evaluation. PAST MEDICAL HISTORY: 1. Meniere's disease. 2. Hard of hearing. MEDICATIONS: 1. Meclizine 25 mg t.i.d. as needed. 2. Magnesium oxide 400 mg p.o. daily. 3. Calcium with vitamin D p.o. daily. 4. Potassium 99 mg daily. 5. Fish oil 1000 mg p.o. b.i.d. 6. Multivitamin daily. 7. Methylsulfonylmethane 1000 mg p.o. b.i.d. ALLERGIES: PENICILLIN. FAMILY HISTORY: Reviewed and noncontributory. SOCIAL HISTORY: The patient lives alone. She is independent of her ADLs. No history of tobacco, alcohol, or illicit drug use. Her health care proxy is her nephew Conner. Code status is DNR/DNI. REVIEW OF SYSTEMS: A 14-point review of systems as mentioned in the HPI, otherwise negative. The patient has been complaining of right knee pain. PHYSICAL EXAMINATION GENERAL: In no acute distress, resting comfortably with her nephew at the bedside. VITAL SIGNS: T-Max is 103.3, pulse rate of 103, respiratory rate 20, oxygen saturation 96% on room air, blood pressure 104/59. HEENT: Head normocephalic. Pupils equal and reactive. Oropharynx: Mucous membranes moist. NECK: Supple. No nuchal rigidity. No adenopathy. RESPIRATORY: Clear to auscultation. No wheezes, rhonchi, or rales. CARDIAC: Regular rate and rhythm. Systolic murmur heard throughout. ABDOMEN: Soft, nontender, nondistended. EXTREMITIES: No clubbing, cyanosis, or edema. No red or swollen joints. DERM: She has a scabbed lesion on her lower torso, no surrounding erythema or drainage. Ecchymosis on her right upper extremity and over her chest. NEUROLOGIC: Alert and oriented x3. No gross focal neurologic deficits. LABORATORY DATA: White count 7.1, hemoglobin 11.8, hematocrit 35, platelets 171. INR 0.93. Sodium 138, potassium 4.1, chloride 105, bicarb 26, BUN 19, creatinine 0.75, glucose 119. CRP 4.94. UA is negative. Flu is negative. Chest x-ray is unremarkable. ASSESSMENT: This is an 87-year-old female with an unremarkable past medical history, who presents to the emergency room with acute onset of fever and 1 episode of vomiting. Fever Assessment: Unclear etiology. She did get a dose of ceftriaxone in the emergency room. This could be a viral illness. This could be gastroenteritis in the setting of her episode of vomiting. No focal findings on exam. Plan: We will place her on gentle IV fluids. We will hold off on further antibiotics at this time with no source. Follow up on blood cultures. 2. Chronic medical problems. She will resume home medications as prescribed. 3. FEN: Regular diet. 4. DVT prophylaxis: The patient scores high risk, placed on heparin subcu t.i.d. 5. Code status: The patient confirms she is a DNR/DNI. PATIENT TIME: Greater than 30 minutes was spent doing the history and physical , more than half the time spent in direct patient contact. [id number]/[facility] #: [id number] [place]
[2018-07-10] MEDS: Lactated Ringers 1000 ML Bag* 1,000 ML IV SCH (07:37)
[2018-07-10] MEDS: Multivitamins/Minerals TAB PO SCH (08:39)
[2018-07-10] MEDS ORDERED: NS 0.9% 1000 ML** 1,000 ML IV ONE (11:01)
--- NOTE | 2018-07-10 18:13 | PN ---
Subjective Date of Service: 07/10/18 Interval History: Brief update - pt admitted this morning. Pt denies complaints to me - although she is a bit contrarian. When asked if she was having shakes or chills before coming in, she insists that she was not shaking, then states "I felt hot and was having the shakes!" Her nephew and niece at bedside report that the patient seems like she is back to herself, including her mentation and appearance. Her last fever was at 4am. She had one dose of CTX at 3:30 AM and this was not continued. She is continued on maintenance IVF given hypovolemia on presentation and still with low-normal BP, although asymptomatic. Per her clinic chart, her normal BP is 120s/70s. Objective Active Medications: Acetaminophen (Tylenol Tab*) 650 mg PO Q4H PRN PRN Reason: FEVER/PAIN Last Admin: 07/10/18 10:58 Dose: 650 mg Enoxaparin Sodium (Lovenox(*)) 40 mg SUBCUT Q24H [facility] Lactated Ringer's (Lactated Ringers 1000 Ml Bag*) 1,000 mls @ 75 mls/hr IV PER RATE [facility] Last Admin: 07/10/18 07:37 Dose: 75 mls/hr Magnesium Oxide (Magox 400 Tab*) 400 mg PO 1900 EPIFANIO Meclizine HCl (Antivert Tab*) 25 mg PO TID PRN PRN Reason: DIZZINESS Multivitamins/Minerals (Theragran/Minerals Tab*) 1 tab PO QAM [facility] Last Admin: 07/10/18 08:39 Dose: 1 tab Senna (Senokot Tab*) 1 tab PO BID PRN PRN Reason: CONSTIPATION Vital Signs - 8 hr 07/10/18 07/10/18 10:50 14:03 Temperature 99.1 F 97.4 F Pulse Rate 95 90 Respiratory 16 20 Rate Blood Pressure 97/51 98/52 (mmHg) O2 Sat by Pulse 97 100 Oximetry Oxygen Devices in Use Now: None Appearance: well appearing elderly woman, very hard of hearnig Eyes: No Scleral Icterus Ears/Nose/Mouth/Throat: Clear Oropharnyx, Mucous Membranes Moist Respiratory: Clear to Auscultation Cardiovascular: RRR Abdominal: NL Sounds; No Tenderness; No Distention Extremities: No Edema Skin: No Rash or Ulcers, - - RUE with resolving hematoma laterally over upper arm Neurological: - - intention tremor in arms, possibly head? 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 Her diagnostic workup has been unrevealing and her symptoms quickly resolved with IVF. - Patient Problems (1) Fever Comment: Unclear etiology, but currently suspectic viral syndrome. Pt denies cough, rash, dysuria, abdominal pain. Her nausea quickly resolved and she's had no further episodes of vomiting. UA and CXR clear. Flu negative. However still with borderline low BP - lactate remains normal. - f/u blood cultures - f/u fever off abx - continue IVF (2) Meniere disease Comment: Pt reports no vertigo in 10 years but constant tinnitus for years. - cont home meclizine prn (3) DVT prophylaxis Comment: switch to Lovenox (4) DNR (do not resuscitate) discussion Current Visit: Yes
[2018-07-10] MEDS ORDERED: Magnesium Oxide TAB* 400 MG PO SCH (19:00)
[2018-07-10] MEDS ORDERED: Enoxaparin(*) 30 MG/0.3 ML SYR SUBCUT SCH (21:00)
[2018-07-11] MEDS: Lactated Ringers 1000 ML Bag* 1,000 ML IV SCH (01:25)
[2018-07-11 06:14] LABS: ABS Basophils 0 10^3/ul (0-0.2); ABS Eosinophils 0.1 10^3/ul (0-0.6); ABS Lymphocytes 0.8 10^3/ul (1.0-4.8); ABS Monocytes 0.7 10^3/ul (0-0.8); ABS Neutrophils 8.1 10^3/ul (1.5-7.7); ABS Nucleated RBC 0 10^3/ul; Eosinophil % 0.6 %; Hematocrit 32 % (33-41); Hemoglobin 10.6 g/dL (12.0-16.0); Lymphocyte % 8.1 %; Mean Corpuscular HGB Conc 33 g/dL (31-36); Mean Corpuscular Hemoglobin 32 pg (27-31); Mean Corpuscular Volume 96 fL (80-97); Mean Platelet Volume 9.1 fL (7.4-10.4); Nucleated Red Blood Cells % 0.1; Platelet Count 138 10^3/uL (150-450); Red Blood Count 3.32 10^6 /uL (3.70-4.87); Red Cell Distribution Width 13 % (10.5-15); White Blood Count 9.7 10^3/uL (3.5-10.8)
[2018-07-11 06:23] LABS: BUN/Creatinine Ratio 20.9 (8-20); Calcium 8.2 mg/dL (8.6-10.3); EGFR African American 100.5 (>60); EGFR Non-African American 83.1 (>60); Magnesium 1.7 mg/dL (1.9-2.7); Potassium 4.1 mmol/L (3.5-5.0)
[2018-07-11 06:35] LABS: TSH (Thyroid Stimulating Horm) 1.33 mcIU/mL (0.34-5.60)
[2018-07-11 07:58] VITALS: BP 126/64
[2018-07-11] MEDS: Multivitamins/Minerals TAB PO SCH (08:41)
--- NOTE | 2018-07-11 13:20 | DS ---
CC: Dr. Dang* DISCHARGE SUMMARY: DATE OF ADMISSION: 07/10/18 DATE OF DISCHARGE: 07/11/18 PRIMARY CARE PROVIDER: Dr. Itzel Dang. CONDITION ON DISCHARGE: Improved. DISPOSITION ON DISCHARGE: Home. PRIMARY DIAGNOSIS: Fever. SECONDARY DIAGNOSES: Include: 1. Meniere's disease. 2. Hard of hearing. MEDICATIONS AT DISCHARGE: Unchanged from admission and include: 1. Meclizine 25 mg 3 times a day as needed. 2. Magnesium oxide 400 mg in the evening. 3. Calcium and vitamin D 1 tab twice daily. 4. Potassium 99 mg in the evening. 5. Fish oil 1000 mg twice daily. 6. Multivitamin 1 tab in the morning. 7. Methylsulfonylmethane 1000 mg twice daily. PERTINENT LABORATORY DATA: CRP 4.94. TSH 1.33. White blood cell count is 9.7 on day of discharge, hemoglobin is 10.6 with an MCV of 96. Urine is bland. Serology is negative for influenza A and B. Microbiology: Negative blood cultures at 36 hours. HISTORY OF PRESENT ILLNESS AND HOSPITAL COURSE: An 87-year-old female with past medical history as outlined in the history of present illness. On the day of admission, presented to the hospital with fevers and shakings, had an elevated temperature in the emergency room as high as 103.3, although other temperatures recorded around that time were 101.6 and 101.9; 103 may have been falsely elevated. In either case, she did have an elevated temperature and tachycardia on presentation to the emergency room. She had no evidence of infection including negative chest x-ray, bland urinalysis with no reflex to culture and negative blood cultures at 36 hours. She received 1 dose of ceftriaxone in the emergency room on 07/10/18 at 3:30 a.m., after which it was discontinued. She had no additional fevers, tachycardia resolved with resolution of fevers. On day of discharge, she felt back to her usual baseline. Differential for elevated fever without other associated symptoms is viral illness. She does not have contact with many people, although she does indicate she does her own shopping, has lot of contact with her nephew who has 5 children of his own. Illness is now resolved and she will not be discharged on antibiotics. The patient did indicate she had a fall on Saturday from a chair after changing out a cushion with her nephew and she did have some bruising on her right arm as well as her chest. It does not appear large enough to account for such elevated temperature. At followup, please: 1. Follow up blood cultures to completion of 48 hours when she is next seen. 2. No other specific labs or vitals that need followup. Reasons to return to the hospital including but not limited to recurrent or worsening fevers, chest pain, shortness of breath, nausea, vomiting, lightheadedness, loss of consciousness, bleeding from any source were discussed with the patient and she acknowledged understanding. TIME SPENT: Greater than 60 minutes was spent on the discharge of this patient. [id number]/[facility] #: [id number] [place]
== END 2018-07-11 11:50 | disposition home or self-care (01) ==
LOC: ED 01:30 → MEDTELE 03:33
PROVIDERS: ADMIT Pediatrics; ATTEND Internal Medicine
DX: R50.9 Fever, unspecified (principal); H81.09 Meniere's disease, unspecified ear; H91.8X9 Other specified hearing loss, unspecified ear; Z88.0 Allergy status to penicillin; Z87.891 Personal history of nicotine dependence; J34.89 Other specified disorders of nose and nasal sinuses; R11.0 Nausea; Z66 Do not resuscitate
CPT/HCPCS: 36415; 71045; 80048; 80053; 81003; 83605; 83735; 84443; 84484; 85025; 85610; 85730; 86140; 87040; 93005; 96361; 96372; 96374; 96375; 99284; A9270-GY; G0378; J0696; J1644; J1650; J2405

== ENCOUNTER 2019-02-26 16:23 | Inpatient (IN) | payer MEDICARE ==
--- NOTE | 2019-02-26 17:04 | ED ---
Adult Trauma - HPI Summary HPI Summary: This pt is an 88 y/o female presenting to [facility] via EMS for an unwitnessed fall today. Pt reports she believes she tripped and fell. She also thinks she had a head strike because she felt dizzy. Nephew reports he found the pt lying in the corner of the floor at around 1500 today. Per nephew, pt was not acting herself and was confused. Nephew believes pt has been on the floor since yesterday as he last spoke with the patient yesterday at 1300 and told him she was eating. Today upon arriving to the patient's home pt still had a plate with food. Denies chest pain, SOB, abd pain. Patient with a fever of 101.2 F in the ED. Per ED nurse, pt has pain with movement of left hip. Nephew reports pt lives alone and does not think she has been eating or drinking fluids as she should. Per nephew pt does not take any medications at all. - History of Current Complaint Chief Complaint: EDFall Stated Complaint: FALL PER EMS Time Seen by Provider: 02/26/19 16:47 Hx Obtained From: Patient, Family/Fusing Machine Feeder - Nephew Mechanism of Injury: Fall Ambulatory at the Scene: No Restraints: None Onset/Duration: Started Hours Ago, Still Present Onset of Pain: Hours Current Severity: None Pain Intensity: 0 Pain Scale Used: 0-10 Numeric Aggravating Factor(s): Nothing Alleviating Factor(s): Nothing Associated Signs & Symptoms: Positive: Fever, Loss of Consciousness. Negative: SOB, Chest Pain, Abdominal Pain - Additional Pertinent History Primary Care Physician: [id number] - Allergy/Home Medications Allergies/Adverse Reactions: Allergies Allergy/AdvReac Type Severity Reaction Status Date / Time Penicillins Allergy Severe Hives Verified 05/09/18 06:33 Home Medications: Home Medications Betamethasone Natalie 0.1% CM(NF) [Valisone 0.1% CM(NF)] 1 applic TOPICAL BID PRN [History Confirmed 02/26/19] Magnesium Oxide TAB* [MagOx 400 TAB*] 400 mg PO DAILY 02/26/19 [History Confirmed 02/26/19] PMH/Surg Hx/FS Hx/Imm Hx Endocrine/Hematology History: Denies: Hx Diabetes Cardiovascular History: Denies: Hx Hypertension Respiratory History: Denies: Other Respiratory Problems/Disorders GI History: Reports: Hx Diverticulosis, Other GI Disorders - diverticulosis Musculoskeletal History: Reports: Hx Arthritis - shoulder, fingers, knees Sensory History: Reports: Hx Cataracts - left eye very start of, Hx Contacts or Glasses Denies: Hx Legally Blind, Hx Deafness, Hx Hearing Aid Opthamlomology History: Reports: Hx Cataracts - left eye very start of, Hx Contacts or Glasses Denies: Hx Legally Blind Neurological History: Reports: Other Neuro Impairments/Disorders - essential tremor Psychiatric History: Reports: Hx Depression - occassionally - Cancer History Hx Chemotherapy: No Hx Radiation Therapy: No - Surgical History Surgical History: Yes Surgery Procedure, Year, and Place: cholecystectomy in 2018 Infectious Disease History: No Infectious Disease History: Denies: Traveled Outside the [place] in Last 30 Days - Family History Known Family History: Positive: Diabetes Negative: Hypertension - Social History Alcohol Use: None Hx Substance Use: No Substance Use Type: Reports: None Hx Tobacco Use: Yes Smoking Status (MU): Never Smoked Tobacco Review of Systems Positive: Fever Negative: Chest Pain Negative: Shortness Of Breath Negative: Abdominal Pain Musculoskeletal: Other - POSITIVE: left hip pain Neurological: Other - POSITIVE: dizziness, confusion All Other Systems Reviewed And Are Negative: Yes Physical Exam - Summary Physical Exam Summary: VITAL SIGNS: Reviewed. GENERAL: Patient is a well-developed and elderly female who is lying comfortable in the stretcher. Patient is not in any acute respiratory distress. HEAD AND FACE: No signs of trauma. No ecchymosis, hematomas or skull depressions. No sinus tenderness. EYES: PERRLA, EOMI x 2, No injected conjunctiva, no nystagmus. EARS: Hearing grossly intact. Ear canals and tympanic membranes are within normal limits. MOUTH: Oropharynx within normal limits. NECK: Supple, trachea is midline, no adenopathy, no JVD, no carotid bruit, no c- spine tenderness, neck with full ROM. CHEST: Symmetric, no tenderness at palpation. LUNGS: Clear to auscultation bilaterally. No wheezing or crackles. CVS: Regular rate and rhythm, S1 and S2 present, no murmurs or gallops appreciated. ABDOMEN: Soft, non-tender. No signs of distention. No rebound, no guarding, and no masses palpated. Bowel sounds are normal. EXTREMITIES: FROM in all major joints, no edema, no cyanosis or clubbing. Patient is able to move all her extremities. NEURO: Alert but not oriented. She is confused. No acute neurological deficits. Speech is normal and follows commands. SKIN: Dry and warm. GCS: 15 Triage Information Reviewed: Yes Vital Signs On Initial Exam: Initial Vitals Temp Pulse Resp BP Pulse Ox 98.7 F 104 20 144/79 98 02/26/19 16:32 02/26/19 16:32 02/26/19 16:32 02/26/19 16:32 02/26/19 16:32 Vital Signs Reviewed: Yes Procedures - Sedation Patient Received Moderate/Deep Sedation with Procedure: No Diagnostics - Vital Signs Vital Signs Temp Pulse Resp BP Pulse Ox 02/26/19 16:32 98.7 F 104 20 144/79 98 - Laboratory Result Diagrams: 02/26/19 17:12 02/26/19 17:12 Lab Statement: Any lab studies that have been ordered have been reviewed, and results considered in the medical decision making process. - Radiology Chest XR Radiology Interpretation Completed By: Radiologist Summary of Radiographic Findings: IMPRESSION: No radiographic evidence for acute cardiopulmonary abnormality on this portable chest x-ray. Dr. Nick has reviewed this report. - CT Brain CT CT Interpretation Completed By: Radiologist Summary of CT Findings: IMPRESSION: Chronic findings as described above without CT apparent acute intracranial abnormality. Dr. Nick has reviewed this report. - EKG 19:01 Cardiac Rate: Tachycardia - at 106 bpm EKG Rhythm: Sinus Tachycardia Summary of EKG Findings: EKG at 1901 shows sinus tachycardia at a rate of [address] elevations. Normal axis. Adult Trauma Course/Dx - Course Assessment/Plan: This pt is an 88 y/o female presenting to [facility] via EMS for an unwitnessed fall today. Pt reports she believes she tripped and fell. She also thinks she had a head strike because she felt dizzy. Nephew reports he found the pt lying in the corner of the floor at around 1500 today. Per nephew, pt was not acting herself and was confused. Nephew believes pt has been on the floor since yesterday as he last spoke with the patient yesterday at 1300 and told him she was eating. Today upon arriving to the patient's home pt still had a plate with food. Denies chest pain, SOB, abd pain. Patient with a fever of 101.2 F in the ED. Per ED nurse, pt has pain with movement of left hip. Nephew reports pt lives alone and does not think she has been eating or drinking fluids as she should. Per nephew pt does not take any medications at all. Blood work without any significant abnormality supportiveness is a 17.9, AST 77 , troponin 0.02, BNP 134. Urinalysis is negative for UTI. In the ED course the patient was given IV fluids, Tylenol for fever. I also added ciprofloxacin for possible UTI. Head CT IMPRESSION: Chronic findings as described above without CT apparent acute intracranial abnormality. CXR IMPRESSION: No radiographic evidence for acute cardiopulmonary abnormality on this portable chest x-ray. I discuss my physical exam and test results with Dr. Molina from the hospitalist services and he agrees to admit the patient to his services - Diagnoses Provider Diagnoses: AMS (altered mental status), UTI (urinary tract infection), Elevated troponin - Physician Notifications Discussed Care Of Patient With: Yenny Molina Time Discussed With Above Provider: 19:43 Instructed by Provider To: Admit As Inpatient Discharge ED - Sign-Out/Discharge Documenting (check all that apply): Patient Departure - [place] [facility] [place]charge Plan Condition: Stable Disposition: ADMITTED TO [facility] - Billing Disposition and Condition Condition: STABLE Disposition: Admitted to [facility] - Attestation Statements Document Initiated by Atilio: Yes Documenting Scribe: Sussy Flower Provider For Whom Atilio is Documenting (Include Credential): Enmanuel Nick MD Scribe Attestation: I, Sussy lFower, scribed for Enmanuel Nick MD on 02/26/19 at 2128. Scribe Documentation Reviewed: Yes Provider Attestation: The documentation as recorded by the Sussy sadler accurately reflects the service I personally performed and the decisions made by me, Enmanuel Nick MD Status of Scribe Document: Viewed
[2019-02-26 17:25] LABS: Urine Appearance Cloudy; Urine Bilirubin Negative (Negative); Urine Blood Negative (Negative); Urine Color Yellow; Urine Glucose Negative (Negative); Urine Ketones 1+ (Negative); Urine Nitrite Negative (Negative); Urine Protein Negative (Negative); Urine Specific Gravity 1.024 (1.010-1.030); Urine Urobilinogen Negative (Negative)
[2019-02-26 17:28] LABS: ABS Basophils 0.1 10^3/ul (0-0.2); ABS Lymphocytes 1.1 10^3/ul (1.0-4.8); ABS Monocytes 1.4 10^3/ul (0-0.8); ABS Neutrophils 15.3 10^3/ul (1.5-7.7); Hematocrit 37 % (35-47); Hemoglobin 12.5 g/dL (12.0-16.0); Lymphocyte % 6.1 %; Mean Corpuscular HGB Conc 34 g/dL (31-36); Mean Corpuscular Hemoglobin 32 pg (27-31); Mean Corpuscular Volume 94 fL (80-97); Mean Platelet Volume 7.6 fL (7.4-10.4); Platelet Count 328 10^3/uL (150-450); Red Blood Count 3.93 10^6 /uL (3.70-4.87); Red Cell Distribution Width 13 % (10-15); White Blood Count 17.9 10^3/uL (3.5-10.8)
[2019-02-26 17:38] LABS: Activated Partial Thrombo Time 30.3 seconds (26.0-38.0)
[2019-02-26 17:48] LABS: ALT 34 U/L (7-52); AST 77 U/L (13-39); Albumin 3.5 g/dL (3.2-5.2); Alkaline Phosphatase 89 U/L (34-104); Anion Gap 10 mmol/L (2-11); BUN/Creatinine Ratio 26.2 (8-20); Blood Urea Nitrogen 16 mg/dL (6-24); CO2 Carbon Dioxide 26 mmol/L (22-32); Calcium 9.7 mg/dL (8.6-10.3); Chloride 108 mmol/L (101-111); EGFR African American 111.7 (>60); EGFR Non-African American 92.4 (>60); Globulin 3.5 g/dL (2-4); Glucose 91 mg/dL (70-100); Magnesium 1.9 mg/dL (1.9-2.7); Potassium 3.7 mmol/L (3.5-5.0); Sodium 144 mmol/L (135-145)
[2019-02-26 17:51] LABS: Urine Bacteria Absent (Absent); Urine Red Blood Cell Absent (Absent); Urine Squamous Epithelial Cell Present (Absent); Urine White Blood Cell 2+(11-20/hpf) (Absent)
[2019-02-26 17:53] LABS: Troponin I 0.03 ng/mL (<0.03)
[2019-02-26 18:15] LABS: TSH (Thyroid Stimulating Horm) 0.66 mcIU/mL (0.34-5.60)
[2019-02-26] MEDS ORDERED: NS 0.9% 500 ML* 500 ML IV ONE (18:57)
[2019-02-26] MEDS ORDERED: Acetaminophen TAB* 325 MG PO ONE (18:57)
[2019-02-26] MEDS ORDERED: Ciprofloxacin 400MG IVPREMIX(* 400 MG/200 ML BAG IVPB ONE (19:48)
[2019-02-26] MEDS ORDERED: NS 0.9% 1000 ML** 1,000 ML IV SCH (20:45)
[2019-02-26 20:53] LABS: Creatine Kinase 881 U/L (10-223)
[2019-02-26] MEDS ORDERED: Meclizine TAB* 12.5 MG PO PRN (20:56)
[2019-02-26 21:30] LABS: Troponin I 0.03 ng/mL (<0.03)
--- NOTE | 2019-02-26 22:28 | HP ---
CC: Itzel Dang MD * HISTORY AND PHYSICAL: DATE OF ADMISSION: 02/26/19 PRIMARY CARE PROVIDER: Itzel Dang MD ATTENDING PHYSICIAN: Yenny Molina MD * (dictated by ERIKA Anderson ) CHIEF COMPLAINT: 1. Fall. 2. Altered mental status. HISTORY OF PRESENT ILLNESS: Ms. Oreilly is an 88-year-old female with a past medical history of diverticulosis, Meniere's, hard of hearing, and essential tremor, who presented to the ER today status post fall with mild altered mental status and confusion. She is accompanied by her nephew and his who relay most of the story. The patient's nephew visited the patient today at 1500 and found her down on the floor. She readily spoke to him and got up without difficulty, but he believes that she had been there for the entire night as suggested by the fact that yesterday's mail was still in the mailbox and her afternoon snack was still sitting on the table uneaten. Conner, the patient's nephew, states that yesterday, they ran errands together and she was dropped back home at 1400 yesterday. Again, he believed she has been down since shortly just after that time. Upon his arrival today, the patient was found down, again she got up regularly, but seemed confused. She was stating that there were 3 girls in the house despite no evidence of anyone having entered the house recently. The patient is sleeping when I enter, but she wakes easily. She states that she is here because she fell. She does not remember the events, but states she thinks she tripped and she thinks she hit her head. She denies head pain at this time and denies neck pain. She does complain of left and right hip pain/pelvic pain, although she is able to move all extremities. She denies chest pain, shortness of breath, cough, fever, chills, abdominal pain, nausea, vomiting, diarrhea, dysuria. Conner notes that when he found her, she had not been incontinent of urine or feces. In the ER, the patient received a full workup including laboratory data revealing a leukocytosis, an elevated AST, troponin of 0.03, BNP of 134, TSH 0.66. Urinalysis shows trace LE without nitrites or bacteria. EKG shows sinus tachycardia. Chest x-ray and CT of the brain are negative. The patient received Cipro 200 at 1950, 500 cc normal saline bolus and acetaminophen 650 mg. The hospitalist team was asked to evaluate the patient for admission. PAST MEDICAL HISTORY: 1. Diverticulosis. 2. Meniere's disease. 3. Hard of hearing. 4. Essential tremor. 5. Osteoarthritis. PAST SURGICAL HISTORY: Cholecystectomy in 2018. HOME MEDICATIONS: 1. Betamethasone 1 application topically b.i.d. p.r.n. rash. 2. Calcium carbonate/vitamin D3 1 tab p.o. b.i.d. 3. Magnesium oxide 400 mg p.o. b.i.d. 4. Meclizine 12.5 mg p.o. t.i.d. p.r.n. vertigo. 5. Methylsulfonylmethane 1000 mg p.o. b.i.d. 6. Multivitamin/minerals 1 tab p.o. daily. 7. Mission-3 fatty acid 2000 mg p.o. b.i.d. 8. Potassium 99 mg p.o. daily. DRUG ALLERGIES: PENICILLIN, hives. FAMILY HISTORY: Mother at the age of 87 from CVA. Father at the age of 56 from [place]. The patient has 9 sisters, 1 with a history of diabetes, 1 with history of pancreatic cancer. She is the last living sister. SOCIAL HISTORY: The patient denies current or former use of tobacco. She does not drink alcohol. She does not use recreational drugs. She is retired from [email or web address], she worked in [employer]. She had a partner of 50 years who in 2005. She has no children. She lives home alone. In the event that she is unable to make her own medical decisions, she has appointed her nephew, Conner Araujo, to be his surrogate decision maker. REVIEW OF SYSTEMS: A 14-point review of systems has been performed and all the pertinent positives and negatives are in the HPI, all other systems are negative. PHYSICAL EXAMINATION GENERAL: Ms. Oreilly is a well-developed, well-nourished, thin, elderly white woman who is sleeping in bed. She wakes easily. She is pleasant and cooperative and able to maintain a relevant conversation. She does not appear confused at this time. VITAL SIGNS: Temperature 98.7 temporal, heart rate 113, respiratory rate 25, oxygen saturation 98% on room air, blood pressure 95/54. HEENT: PERRL. EOMI. Nonicteric sclerae. The patient is hard of hearing. Oral mucous membranes are dry. Pharynx is clear without lesions, exudates, or erythema. Tongue is at midline. Palate elevates symmetrically. CARDIOVASCULAR: Sinus tachycardia. S1, S2 without murmurs, rubs, clicks, or gallops. No JVD or peripheral edema. PULMONARY: Symmetrical chest expansion without use of the accessory muscles. Clear to auscultation bilaterally without rhonchi, wheeze, or rales. ABDOMEN: Flat. Bowel sounds in all quadrants. Soft, nontender to palpation. MUSCULOSKELETAL: Upper extremities with full and painless range of motion. Lower extremities with full range of motion that becomes painful in the hip with flexion greater than 90 degrees. Tenderness to palpation at the left and right hips. NEURO: The patient is awake. She is alert and oriented x3. Cranial nerves II through XII are grossly intact. Motor strength is 5/5 bilaterally in upper and lower extremities. DIAGNOSTIC STUDIES/LAB DATA: WBC 17.9. Lactic acid 1.3. AST 77. Troponin 0.03. BNP 134. TSH 0.66. ECG shows sinus tachycardia with a rate of [address] changes. Chest x-ray, impression: No radiographic evidence for acute cardiopulmonary abnormalities on portable chest x-ray. CT brain without, impression: Chronic findings as described above without apparent acute intracranial abnormality. ASSESSMENT AND PLAN: Ms. Oreilly is an 88-year-old female with a past medical history of diverticulosis, Meniere's, hard of hearing, who presented to the ER today via ambulance status post fall with altered mental status and meeting SIRS criteria. The patient will be admitted for: 1. Systemic inflammatory response syndrome criteria. The patient meets SIRS criteria with leukocytosis, tachycardia, and is also noted to have had an episode of tachypnea. At this time, she is afebrile. She denies cough, fever, chills, urinary complaints, abdominal pain, nausea, vomiting, diarrhea. Chest x -ray is within normal limits. Urinalysis reveals trace leukocyte esterase, which is not fully compelling evidence of urinary tract infection. The patient received 1 dose of Cipro in the ER. She also received 500 cc normal saline bolus. At this time, I will hold off on further antibiotics and await urine culture. She will continue IV fluid hydration at this time and we will monitor for need for further intervention. Lactic acid is within normal limits. 2. Fall. The patient presents having sustained an unwitnessed fall. It is unclear how long she was down for and the patient is unable to relay this information, but there is suspicion that she may have been down overnight. A CK has been ordered and is pending. She will be placed on IV fluids at this time as she appears dehydrated based on physical exam. She complains of pelvic pain and bilateral hip pain. X-rays have been ordered. PT and OT will be ordered to assess the patient's ambulation. 3. Encephalopathy. The patient appears to have an acute alteration in mental status. This could have been caused by an infection, although the patient appears to have returned back to baseline without any intervention. I do not suspect that this was medication related as the patient does not appear to be on any medications that might cause this. Her altered mental status may have been from a mild delirium from fall and being down for an extended period of time. CT of the brain was unremarkable. We will monitor for need for further intervention. 4. Meniere's disease. Continue meclizine as needed. The patient notes that she has not used this in quite some time. 5. DVT prophylaxis. According to DVT Risk Assessment, the patient scores 3 placing her at high risk. She will be started on Lovenox. 6. Code status. Full code. The patient is undecided whether she wants to be full code or DNR, so at this time she has decided to be full code and will continue to contemplate this. TIME SPENT: Approximately 60 minutes were spent on this admission, greater than half of that time was spent [id number] with the patient and her family obtaining history, performing physical, and reviewing the plan of care. The case has been reviewed with my attending, Dr. Molina, who is in agreement with the plan of care. GEETHA HODGE, ERIKA [id number]/[facility] #: [id number] [place]
[2019-02-26] MEDS: Enoxaparin(*) 40 MG/0.4 ML SYR SUBCUT SCH (23:38)
[2019-02-27 01:23] LABS: Troponin I 0.03 ng/mL (<0.03)
[2019-02-27] MEDS: Magnesium Oxide TAB* 400 MG PO SCH (08:34)
[2019-02-27] MEDS: Multivitamins/Minerals TAB PO SCH (08:34)
[2019-02-27] MEDS: Calcium/Vitamin D TAB 250/125* TAB PO SCH ×2 (08:34→20:35)
[2019-02-27 08:45] LABS: ABS Basophils 0.1 10^3/ul (0-0.2); ABS Lymphocytes 1.6 10^3/ul (1.0-4.8); ABS Neutrophils 12.5 10^3/ul (1.5-7.7); Eosinophil % 0.2 %; Hematocrit 32 % (35-47); Hemoglobin 10.7 g/dL (12.0-16.0); Lymphocyte % 10.2 %; Mean Corpuscular HGB Conc 33 g/dL (31-36); Mean Corpuscular Hemoglobin 32 pg (27-31); Mean Corpuscular Volume 95 fL (80-97); Mean Platelet Volume 7.3 fL (7.4-10.4); Platelet Count 248 10^3/uL (150-450); Red Cell Distribution Width 13 % (10-15); White Blood Count 15.2 10^3/uL (3.5-10.8)
[2019-02-27 08:54] LABS: Albumin 2.8 g/dL (3.2-5.2); BUN/Creatinine Ratio 29.2 (8-20); Calcium 8.4 mg/dL (8.6-10.3); EGFR African American 103.8 (>60); EGFR Non-African American 85.8 (>60); Globulin 2.8 g/dL (2-4); Total Bilirubin 0.9 mg/dL (0.2-1.0); Total Protein 5.6 g/dL (6.4-8.9)
[2019-02-27] MEDS: Acetaminophen TAB* 325 MG PO PRN (10:54)
[2019-02-27] MEDS ORDERED: cefTRIAXone(*) 1 GM in NS 0.9% 50 ML* 50 ML IVPB SCH (12:00)
--- NOTE | 2019-02-27 16:16 | PN ---
Subjective Date of Service: 02/27/19 Interval History: Patient tells me her "legs and butt her when I try to move them." No pain when resting. Patient denies dysuria, fever/chills, abd pain, chest pain, difficulty breathing. Objective Active Medications: Acetaminophen (Tylenol Tab*) 650 mg PO Q4H PRN PRN Reason: mild to moderate pain Last Admin: 02/27/19 10:54 Dose: 650 mg Calcium/Vitamin D (Oscal D Tab 250/125*) 1 tab PO BID [facility] Last Admin: 02/27/19 08:34 Dose: 1 tab Enoxaparin Sodium (Lovenox(*)) 40 mg SUBCUT Q24H [facility] Last Admin: 02/26/19 23:38 Dose: 40 mg Magnesium Oxide (Magox 400 Tab*) 400 mg PO DAILY [facility] Last Admin: 02/27/19 08:34 Dose: 400 mg Meclizine HCl (Antivert Tab*) 12.5 mg PO TID PRN PRN Reason: DIZZINESS Multivitamins/Minerals (Theragran/Minerals Tab*) 1 tab PO QAM [facility] Last Admin: 02/27/19 08:34 Dose: 1 tab Vital Signs - 8 hr 02/27/19 02/27/19 11:15 15:15 Temperature 97.5 F 99.5 F Pulse Rate 96 104 Respiratory 20 20 Rate Blood Pressure 103/50 142/45 (mmHg) O2 Sat by Pulse 98 97 Oximetry Oxygen Devices in Use Now: None Appearance: Thin, elderly white female, sitting upright in chair, appearing comfortable eand in NAD Eyes: No Scleral Icterus, - - PERRL Ears/Nose/Mouth/Throat: Mucous Membranes Moist Neck: NL Appearance and Movements; NL JVP Cardiovascular: NL Sounds; No Murmurs; No JVD, RRR Abdominal: - - abd soft, nontender, nondistended Extremities: No Edema, No Clubbing, Cyanosis Skin: No Rash or Ulcers Neurological: NL Muscle Strength and Tone, - - minimal tremors consistent with essential tremor; patient oriented to self and location Result Diagrams: 02/27/19 08:33 02/27/19 08:33 Microbiology and Other Data: Microbiology 02/26/19 17:12 Urine Culture - Final Urine Assess/Plan/Problems-Billing Assessment: 88 yo white female with PMHx essential tremor and memory loss reports to the ED after being found down at home. - Patient Problems (1) Fall Current Visit: Yes Status: Acute Comment: -patient fell and etiology is unclear, patient believes she tripped but is unsure. Low suspicion for syncope -found down by her nephew and possibly on the floor >20 hours but unclear. CPK only minimally elevated, no rhabdo -Brain CT without acute abnormality. Pelvis Xray without acute fracture -Urine culture negative, d/c empiric coverage -PT recommends ABIGAIL -some LE pain but tolerable per patient (2) Elevated troponin Current Visit: Yes Status: Acute Code(s): R79.89 - OTHER SPECIFIED ABNORMAL FINDINGS OF BLOOD CHEMISTRY SNOMED Code(s): 159159403 Comment: -elevated to 0.03, persistently elevated at this x3 readings without EKG changes -not representing ACS given no EKG changes or anginal sxs (3) Essential tremor Current Visit: Yes Status: Acute Code(s): G25.0 - ESSENTIAL TREMOR SNOMED Code(s): 696118403 Comment: -baseline -no medication at home (4) Meniere disease Current Visit: No Status: Acute Code(s): H81.09 - MENIERE'S DISEASE, UNSPECIFIED EAR SNOMED Code(s): 73404956 Comment: - cont home meclizine prn (5) DNR (do not resuscitate) discussion Current Visit: No Status: Acute Code(s): Z71.89 - OTHER SPECIFIED COUNSELING SNOMED Code(s): 169861142 (6) DVT prophylaxis Current Visit: No Status: Acute Code(s): HBI6783 - SNOMED Code(s): 340146159 Comment: -lovenox Status and Disposition: pending ABIGAIL placement
[2019-02-27] MEDS: Enoxaparin(*) 40 MG/0.4 ML SYR SUBCUT SCH (20:35)
[2019-02-27] MEDS: Ketorolac INJ* 15 MG/ML 1 ML VIAL IV PUSH PRN (21:58)
[2019-02-28] MEDS: Calcium/Vitamin D TAB 250/125* TAB PO SCH ×2 (08:01→21:15)
[2019-02-28] MEDS: Multivitamins/Minerals TAB PO SCH (08:01)
[2019-02-28] MEDS: Magnesium Oxide TAB* 400 MG PO SCH (08:01)
[2019-02-28] MEDS: Ketorolac INJ* 15 MG/ML 1 ML VIAL IV PUSH PRN ×2 (08:01→17:04)
--- NOTE | 2019-02-28 09:55 | PN ---
Subjective Date of Service: 02/28/19 Interval History: Patient states that her "legs and butt hurt" and that she "feels lousy." Does report that she has no pain when not moving. Agreeable to ABIGAIL and SNF. Denies chest pain, dysuria, abd pain, difficulty breathing, fever/chills. Objective Active Medications: Acetaminophen (Tylenol Tab*) 650 mg PO Q4H PRN PRN Reason: mild to moderate pain Last Admin: 02/27/19 10:54 Dose: 650 mg Calcium/Vitamin D (Oscal D Tab 250/125*) 1 tab PO BID [facility] Last Admin: 02/28/19 08:01 Dose: 1 tab Enoxaparin Sodium (Lovenox(*)) 40 mg SUBCUT Q24H [facility] Last Admin: 02/27/19 20:35 Dose: 40 mg Ketorolac Tromethamine (Toradol Inj*) 15 mg IV PUSH Q6H PRN PRN Reason: PAIN - MODERATE Last Admin: 02/28/19 08:01 Dose: 15 mg Magnesium Oxide (Magox 400 Tab*) 400 mg PO DAILY [facility] Last Admin: 02/28/19 08:01 Dose: 400 mg Meclizine HCl (Antivert Tab*) 12.5 mg PO TID PRN PRN Reason: DIZZINESS Multivitamins/Minerals (Theragran/Minerals Tab*) 1 tab PO QAM [facility] Last Admin: 02/28/19 08:01 Dose: 1 tab Vital Signs - 8 hr 02/28/19 03:39 Temperature 97.8 F Pulse Rate 99 Respiratory 18 Rate Blood Pressure 102/48 (mmHg) O2 Sat by Pulse 96 Oximetry Oxygen Devices in Use Now: None Appearance: Thin, elderly white female, laying in bed, appearing in NAD Eyes: No Scleral Icterus, - - PERRL Ears/Nose/Mouth/Throat: Mucous Membranes Moist Neck: Trachea Midline Respiratory: Symmetrical Chest Expansion and Respiratory Effort, Clear to Auscultation Cardiovascular: NL Sounds; No Murmurs; No JVD, RRR Abdominal: - - abd soft, nontender, nondistended Extremities: No Edema, No Clubbing, Cyanosis Skin: No Rash or Ulcers Neurological: NL Muscle Strength and Tone, - - alert and oriented to self and location Result Diagrams: 02/27/19 08:33 02/27/19 08:33 Microbiology and Other Data: Microbiology 02/26/19 17:12 Urine Culture - Final Urine Assess/Plan/Problems-Billing Assessment: 88 yo white female with PMHx essential tremor and memory loss reports to the ED after being found down at home. - Patient Problems (1) Fall Current Visit: Yes Status: Acute Comment: -patient fell and etiology is unclear, patient believes she tripped but is unsure. Low suspicion for syncope -found down by her nephew and possibly on the floor >20 hours but unclear. CPK only minimally elevated, no rhabdo -Brain CT without acute abnormality. Pelvis Xray without acute fracture -Urine culture negative, d/c empiric coverage -PT eval recommends ABIGAIL -some LE pain but tolerable per patient, controlled with tylenol (2) Elevated troponin Current Visit: Yes Status: Acute Code(s): R79.89 - OTHER SPECIFIED ABNORMAL FINDINGS OF BLOOD CHEMISTRY SNOMED Code(s): 579812127 Comment: -elevated to 0.03, persistently elevated at this x3 readings without EKG changes -not representing ACS given no EKG changes or anginal sxs (3) Essential tremor Current Visit: Yes Status: Acute Code(s): G25.0 - ESSENTIAL TREMOR SNOMED Code(s): 576978006 Comment: -baseline -no medication at home (4) Meniere disease Current Visit: No Status: Acute Code(s): H81.09 - MENIERE'S DISEASE, UNSPECIFIED EAR SNOMED Code(s): 92835317 Comment: - cont home meclizine prn (5) DNR (do not resuscitate) discussion Current Visit: No Status: Acute Code(s): Z71.89 - OTHER SPECIFIED COUNSELING SNOMED Code(s): 188733514 (6) DVT prophylaxis Current Visit: No Status: Acute Code(s): ULR4125 - SNOMED Code(s): 095093671 Comment: -lovenox Status and Disposition: pending ABIGAIL placement
[2019-02-28] MEDS: Enoxaparin(*) 30 MG/0.3 ML SYR SUBCUT SCH (21:17)
[2019-03-01] MEDS: Acetaminophen TAB* 325 MG PO PRN ×2 (08:10→21:12)
[2019-03-01] MEDS: Magnesium Oxide TAB* 400 MG PO SCH (08:11)
[2019-03-01] MEDS: Multivitamins/Minerals TAB PO SCH (08:11)
[2019-03-01] MEDS: Calcium/Vitamin D TAB 250/125* TAB PO SCH ×2 (08:11→21:13)
[2019-03-01 08:20] LABS: Hematocrit 30 % (35-47); Hemoglobin 10.3 g/dL (12.0-16.0); Mean Corpuscular HGB Conc 34 g/dL (31-36); Mean Corpuscular Hemoglobin 33 pg (27-31); Mean Corpuscular Volume 95 fL (80-97); Mean Platelet Volume 7.5 fL (7.4-10.4); Platelet Count 216 10^3/uL (150-450); Red Blood Count 3.15 10^6 /uL (3.70-4.87); Red Cell Distribution Width 13 % (10-15); White Blood Count 8.8 10^3/uL (3.5-10.8)
[2019-03-01 08:35] LABS: BUN/Creatinine Ratio 30.9 (8-20); Calcium 8.8 mg/dL (8.6-10.3); EGFR African American 125.9 (>60); EGFR Non-African American 104.1 (>60); Magnesium 1.6 mg/dL (1.9-2.7); Potassium 4.3 mmol/L (3.5-5.0)
[2019-03-01 08:40] LABS: ABS Eosinophils 0.1 10^3/ul (0-0.6); ABS Lymphocytes 1.1 10^3/ul (1.0-4.8); ABS Monocytes 0.7 10^3/ul (0-0.8); ABS Neutrophils 6.9 10^3/ul (1.5-7.7); Eosinophil % 0.9 %; Lymphocyte % 12.6 %
--- NOTE | 2019-03-01 15:33 | PN ---
Subjective Date of Service: 03/01/19 Interval History: Patient has no complaints today. She screams when her legs are moved minimally to evaluate and then appears quite comfortable afterward. She denies chest pain , difficulty breathing, LE pain, fever/chills, abd pain. Objective Active Medications: Acetaminophen (Tylenol Tab*) 650 mg PO Q4H PRN PRN Reason: mild to moderate pain Last Admin: 03/01/19 08:10 Dose: 650 mg Calcium/Vitamin D (Oscal D Tab 250/125*) 1 tab PO BID [facility] Last Admin: 03/01/19 08:11 Dose: 1 tab Enoxaparin Sodium (Lovenox(*)) 30 mg SUBCUT Q24H [facility] Last Admin: 02/28/19 21:17 Dose: 30 mg Ketorolac Tromethamine (Toradol Inj*) 15 mg IV PUSH Q6H PRN PRN Reason: PAIN - MODERATE Last Admin: 02/28/19 17:04 Dose: 15 mg Magnesium Oxide (Magox 400 Tab*) 400 mg PO DAILY [facility] Last Admin: 03/01/19 08:11 Dose: 400 mg Meclizine HCl (Antivert Tab*) 12.5 mg PO TID PRN PRN Reason: DIZZINESS Multivitamins/Minerals (Theragran/Minerals Tab*) 1 tab PO QAM [facility] Last Admin: 03/01/19 08:11 Dose: 1 tab Vital Signs - 8 hr 03/01/19 03/01/19 08:00 11:15 Temperature 97.2 F Pulse Rate 91 Respiratory 20 18 Rate Blood Pressure 105/50 (mmHg) O2 Sat by Pulse 97 Oximetry Oxygen Devices in Use Now: None Appearance: Thin, elderly white female, laying upright in bed, appearing comfortable and in NAD Eyes: No Scleral Icterus, - - PERRL Ears/Nose/Mouth/Throat: Mucous Membranes Moist Neck: Trachea Midline Respiratory: Symmetrical Chest Expansion and Respiratory Effort, Clear to Auscultation Cardiovascular: NL Sounds; No Murmurs; No JVD, RRR Abdominal: - - abdomen soft, nontender, nondistended Extremities: No Edema, No Clubbing, Cyanosis Skin: No Rash or Ulcers Neurological: Alert and Oriented x 3, NL Muscle Strength and Tone Result Diagrams: 03/01/19 08:13 03/01/19 08:13 Microbiology and Other Data: Microbiology 02/26/19 17:12 Urine Culture - Final Urine Assess/Plan/Problems-Billing Assessment: 88 yo white female with PMHx essential tremor and memory loss reports to the ED after being found down at home. - Patient Problems (1) Fall Current Visit: Yes Status: Acute Comment: -patient fell and etiology is unclear, patient believes she tripped but is unsure. Low suspicion for syncope -found down by her nephew and possibly on the floor >20 hours but unclear. CPK only minimally elevated, no rhabdo -Brain CT without acute abnormality. Pelvis Xray without acute fracture -Urine culture negative, d/c empiric coverage -PT eval recommends ABIGAIL -some LE pain but tolerable per patient, controlled with tylenol (2) Elevated troponin Current Visit: Yes Status: Acute Code(s): R79.89 - OTHER SPECIFIED ABNORMAL FINDINGS OF BLOOD CHEMISTRY SNOMED Code(s): 844202503 Comment: -elevated to 0.03, persistently elevated at this x3 readings without EKG changes -not representing ACS given no EKG changes or anginal sxs (3) Essential tremor Current Visit: Yes Status: Acute Code(s): G25.0 - ESSENTIAL TREMOR SNOMED Code(s): 608979305 Comment: -baseline -no medication at home (4) Meniere disease Current Visit: No Status: Acute Code(s): H81.09 - MENIERE'S DISEASE, UNSPECIFIED EAR SNOMED Code(s): 27838987 Comment: - cont home meclizine prn (5) DNR (do not resuscitate) discussion Current Visit: No Status: Acute Code(s): Z71.89 - OTHER SPECIFIED COUNSELING SNOMED Code(s): 163206589 (6) DVT prophylaxis Current Visit: No Status: Acute Code(s): SOE6490 - SNOMED Code(s): 452110290 Comment: -lovenox Status and Disposition: pending [facility]IGAIL placement
[2019-03-01] MEDS: Enoxaparin(*) 30 MG/0.3 ML SYR SUBCUT SCH (21:14)
[2019-03-01] MEDS: Ketorolac INJ* 15 MG/ML 1 ML VIAL IV PUSH PRN (22:53)
[2019-03-02] MEDS: Magnesium Oxide TAB* 400 MG PO SCH (07:36)
[2019-03-02] MEDS: Calcium/Vitamin D TAB 250/125* TAB PO SCH ×2 (07:36→21:58)
[2019-03-02] MEDS: Acetaminophen TAB* 325 MG PO PRN (07:36)
[2019-03-02] MEDS: Multivitamins/Minerals TAB PO SCH (07:36)
--- NOTE | 2019-03-02 10:50 | PN ---
Subjective Date of Service: 03/02/19 Interval History: Nursing called me this morning to tell me patient reported chest pain. Per RN Karolina, patient had reproducible chest pain with palpation to anterior chest. By time of my evaluation approx 1 hour later, patient tells me she had back pain , chest pain, and abdominal pain earlier this morning that has resolved completely. She had a BM this morning that was formed. Denies nausea, difficulty breathing. Objective Active Medications: Acetaminophen (Tylenol Tab*) 650 mg PO Q4H PRN PRN Reason: mild to moderate pain Last Admin: 03/02/19 07:36 Dose: 650 mg Calcium/Vitamin D (Oscal D Tab 250/125*) 1 tab PO BID [facility] Last Admin: 03/02/19 07:36 Dose: 1 tab Enoxaparin Sodium (Lovenox(*)) 30 mg SUBCUT Q24H [facility] Last Admin: 03/01/19 21:14 Dose: 30 mg Ketorolac Tromethamine (Toradol Inj*) 15 mg IV PUSH Q6H PRN PRN Reason: PAIN - MODERATE Last Admin: 03/01/19 22:53 Dose: 15 mg Magnesium Oxide (Magox 400 Tab*) 400 mg PO DAILY [facility] Last Admin: 03/02/19 07:36 Dose: 400 mg Meclizine HCl (Antivert Tab*) 12.5 mg PO TID PRN PRN Reason: DIZZINESS Multivitamins/Minerals (Theragran/Minerals Tab*) 1 tab PO QAM [facility] Last Admin: 03/02/19 07:36 Dose: 1 tab Vital Signs - 8 hr 03/02/19 03/02/19 03:18 07:15 Temperature 97.2 F 99.8 F Pulse Rate 92 91 Respiratory 18 20 Rate Blood Pressure 129/55 125/65 (mmHg) O2 Sat by Pulse 96 94 Oximetry Oxygen Devices in Use Now: None Appearance: Thin, elderly white female, laying in bed, appearing comfortable and in NAD Eyes: No Scleral Icterus, - - PERRL Ears/Nose/Mouth/Throat: Mucous Membranes Moist Neck: Trachea Midline Respiratory: Symmetrical Chest Expansion and Respiratory Effort, Clear to Auscultation Cardiovascular: NL Sounds; No Murmurs; No JVD, RRR Abdominal: NL Sounds; No Tenderness; No Distention Extremities: No Edema, No Clubbing, Cyanosis, - - MSK: no spinous process tenderness throughout cervical and thoractic spine Skin: No Rash or Ulcers Neurological: Alert and Oriented x 3, NL Muscle Strength and Tone Result Diagrams: 03/01/19 08:13 03/01/19 08:13 Microbiology and Other Data: Microbiology 02/26/19 17:12 Urine Culture - Final Urine Assess/Plan/Problems-Billing Assessment: 88 yo white female with PMHx essential tremor and memory loss reports to the ED after being found down at home. - Patient Problems (1) Chest pain Current Visit: Yes Status: Acute Code(s): R07.9 - CHEST PAIN, UNSPECIFIED SNOMED Code(s): 94346123 Comment: -complaint of episode of chest pain that lasted <30 minutes and resolved on its own this morning -EKG without ischemic changes, isolated T wave inversion in V1; troponin negative -likely musculoskeletal, no concern for ACS (2) Fall Current Visit: Yes Status: Acute Comment: -patient fell and etiology is unclear, patient believes she tripped but is unsure. Low suspicion for syncope -found down by her nephew and possibly on the floor >20 hours but unclear. CPK only minimally elevated, no rhabdo -Brain CT without acute abnormality. Pelvis Xray without acute fracture -Urine culture negative, d/c empiric coverage -PT eval recommends ABIGAIL -some LE pain but tolerable per patient, controlled with tylenol (3) Essential tremor Current Visit: Yes Status: Acute Code(s): G25.0 - ESSENTIAL TREMOR SNOMED Code(s): 076045856 Comment: -baseline -no medication at home (4) Meniere disease Current Visit: No Status: Acute Code(s): H81.09 - MENIERE'S DISEASE, UNSPECIFIED EAR SNOMED Code(s): 81043989 Comment: - cont home meclizine prn (5) DNR (do not resuscitate) discussion Current Visit: No Status: Acute Code(s): Z71.89 - OTHER SPECIFIED COUNSELING SNOMED Code(s): 345970727 (6) DVT prophylaxis Current Visit: No Status: Acute Code(s): EKD8671 - SNOMED Code(s): 836108796 Comment: -lovenox Status and Disposition: pending ABIGAIL placement
[2019-03-02] MEDS: Enoxaparin(*) 30 MG/0.3 ML SYR SUBCUT SCH (21:57)
[2019-03-03] MEDS: Calcium/Vitamin D TAB 250/125* TAB PO SCH (08:29)
[2019-03-03] MEDS: Magnesium Oxide TAB* 400 MG PO SCH (08:29)
[2019-03-03] MEDS: Multivitamins/Minerals TAB PO SCH (08:29)
[2019-03-03 11:35] VITALS: BP 107/54
--- NOTE | 2019-03-03 16:22 | DS ---
CC: Itzel Dang MD * DISCHARGE SUMMARY: DATE OF ADMISSION: 02/26/19 DATE OF DISCHARGE: 03/03/19 PROVIDER: ERIKA Dodson PRIMARY CARE PROVIDER: Itzel Dang MD ATTENDING PHYSICIAN WHILE IN THE HOSPITAL: Dr. Kenny Taylor * (dictated by ERIKA Dodson). PRIMARY DIAGNOSIS: Fall at home, likely mechanical though possible vasovagal syncope. SECONDARY DIAGNOSES: 1. Diverticulosis. 2. Meniere's disease. 3. Hard of hearing. 4. Essential tremor. 5. Osteoarthritis. 6. Memory loss. STUDIES WHILE IN THE HOSPITAL AND PERTINENT LABORATORY DATA: Brain CT on : No acute intracranial abnormality. Chest x-ray on 02/26/19: No radiographic evidence for acute cardiopulmonary abnormality on this portable chest x-ray. Hip x-ray on 02/26/19: Osteopenia with no displaced fracture. If there is clinical suspicion of persistent pain, followup imaging is recommended. EKG on 02/27/19: Normal sinus rhythm, 82 beats per minute, normal axis; minimal T- wave inversion, isolated to V1 only. Otherwise, no ST depressions or other T-wave changes. Troponin 0.03 on 02/26/19 and 0.01 on 03/02/19. White blood cell count on admission 17.9. White blood cell count on 03/02/19, 8.8 HISTORY OF PRESENT ILLNESS/HOSPITAL COURSE: Lisa Oreilly is an 88-year-old white female with a past medical history significant for memory loss, Meniere's disease, essential tremor, who presented to the emergency department after being found on the floor by her nephew. The patient has poor memory at baseline and was unable to remember the events leading up to her fall. For further details regarding this, please see the admitting history and physical written by ERIKA Owen. Ultimately, the patient was monitored on telemetry during her hospital stay and had no arrhythmias. She possibly had mechanical fall or possibly vasovagal syncope as she was found in the bathroom, perhaps this is related to a bowel movement, though it is unclear at this time. The patient was complaining of lower extremity pain but had normal musculoskeletal and neurological exam and was found to have no acute osseous injury on her hip x-ray. She was seen by Physical Therapy during her hospital stay and who recommended subacute rehab and the patient and her nephew are agreeable to this. Initially, there was concern for UTI given the patient had fallen and had a leukocytosis; however, her urine culture was negative. She was started on empiric ceftriaxone, this was stopped when the urine culture was found to be negative. The patient was afebrile during the entire hospital stay. She did have nonspecific complaints during for the majority of her hospital stay mostly relating to pain in her extremities and being very sensitive out of portion to exam. Due to prolonged time on floor, there was concern for rhabdomyolysis; however, this was not evident as her creatinine kinase was only 81. DISCHARGE PLAN: Diet: Regular and unrestricted diet. Activity: Normal activity as tolerated without restrictions. The patient is going to [facility] for subacute rehab. She can follow up with her primary care provider within 1 week after discharge. If she has further episodes of syncope, any loss of consciousness, chest pain, difficulty breathing, dizziness, lightheadedness, fever or chills, she should report to emergency department. DISCHARGE MEDICATIONS: 1. Magnesium oxide 400 mg p.o. daily. 2. Fish oil 2000 mg p.o. b.i.d. 3. Multivitamin 1 tab p.o. daily. 4. Methylsulfonylmethane 1000 mg p.o. b.i.d. 5. Meclizine 12.5 mg p.o. t.i.d. p.r.n. dizziness/vertigo. 6. Calcium with vitamin D 1 cap p.o. b.i.d. 7. Betamethasone cream 1 application topically b.i.d. p.r.n. rash. 8. Tylenol 650 mg p.o. q.4 hours p.r.n. pain. CONDITION ON DISCHARGE: Stable. DISPOSITION: [facility] for subacute rehab. TIME SPENT: Approximately 30 minutes was spent on this discharge. ERIKA DODSON [id number]/[facility] #: [id number] MTDD
== END 2019-03-03 16:40 | DRG 312 ==
LOC: ED 16:23 → MEDTELE 20:35 → OBSVTOIN 02-28 14:00
PROVIDERS: ADMIT Student in an Organized Health Care Education/Training Program; ATTEND Internal Medicine
DX: R55 Syncope and collapse (principal); G93.40 Encephalopathy, unspecified; R65.10 Systemic inflammatory response syndrome (SIRS) of non-infectious origin without acute organ dysfunction; W19.XXXA Unspecified fall, initial encounter; H81.09 Meniere's disease, unspecified ear; G25.0 Essential tremor; R07.9 Chest pain, unspecified; K57.90 Diverticulosis of intestine, part unspecified, without perforation or abscess without bleeding; M19.90 Unspecified osteoarthritis, unspecified site; M85.869 Other specified disorders of bone density and structure, unspecified lower leg; Z79.899 Other long term (current) drug therapy; Z88.0 Allergy status to penicillin; Z82.3 Family history of stroke; Z82.49 Family history of ischemic heart disease and other diseases of the circulatory system; Z83.3 Family history of diabetes mellitus; Z80.0 Family history of malignant neoplasm of digestive organs
CPT/HCPCS: 36415; 70450; 71045; 73523; 80048; 80053; 81003; 81015; 82140; 82550; 83605; 83735; 83880; 84443; 84484; 85025; 85610; 85730; 87086; 93005; 99284; A9270-GY; G0378; G8978-GP-CL; G8979-GP-CI; J0696; J0744; J1650; J1885